=== PATIENT | male | born 1940 | race Caucasian/White ===

== ENCOUNTER → 2024-04-10 13:02 | Outpatient (REF) | payer MEDICARE, SELFPAY | LOC: MRI 3T 13:02 | PROVIDERS: ATTENDING PHYSICIAN Radiology Radiation Oncology; FAMILY PHYSICIAN Family Medicine | DX: C31.3 Malignant neoplasm of sphenoid sinus (principal) | CPT/HCPCS: 70553; A9575 ==

== ENCOUNTER 2024-10-02 19:13 | Inpatient (IN) | payer MEDICARE, SELFPAY ==
[2024-10-02] VITALS (15 sets, daily range): BP systolic 130–182; BP diastolic 73–134; BMI 27.9; BMI 27.8
--- NOTE | 2024-10-02 16:23 | ED.GENMED ---
History of Present Illness
General
Chief Complaint: Chest Pain
Source: patient
Exam Limitations: none
Time Seen by Provider: 10/02/24 16:19
Nursing documentation reviewed up to this point in time: agreed with
History of Present Illness
History of Present Illness:
84-year-old male presents emergency department due to chest pain for the past 2 days. Pain is in the center of his chest and radiates to his jaw for the past 2 days. Denies any shortness of breath. Currently he denies any chest pain. He was seen
at his primary care office, and sent to the emergency department.
Past History
Past History
ED Past Medical History: HTN
ED Past Surgical History: Other (Sinus tumor removal)
Social History
Tobacco: Non-smoker
Alcohol: None
Drug: None
Living: with family
Review of Systems
Review of Systems
Allergies reviewed?: Yes
All Other Systems: Not applicable
Constitutional: Reports no symptoms
EENT: Reports no symptoms
Respiratory: Reports no symptoms
Cardiac: Reports chest pain
ABD/GI: Reports no symptoms
: Reports no symptoms
Musculoskeletal: Reports no symptoms
Skin: Reports no symptoms
Neurological: Reports no symptoms
Endocrine: Reports no symptoms
Hematologic/Lymphatic: Reports no symptoms
Psychiatric: Reports no symptoms
Phy Exam
Physical Exam
Physical Exam:
Physical Exam
General: no apparent distress, not acutely ill
Neck: supple. no meningeal signs. normal posterior pharynx
Heart: s1/s2 regular rate and rhythm, no murmur. equal radial
pulses.
HEENT: Pupils equal round reactive to light, EOMI
Lungs: no acute respiratory distress. clear bilaterally
Abdomen: normal bowel sounds. not tender. no CVAT
Neuro: alert and oriented. no focal neurological deficits cranial nerves II through XII intact
Skin: no rash
Psychiatric: well kept. interactive and cooperative
Extremities: no edema. no calf tenderness. negative homans. good distal pulses
Scores
Heart Score for Chest Pain Patients
STEMI patient?: No
History: Moderately Suspicious
ECG: Significant ST-Depression
Age: >/= 65 years
Risk Factors: >/= 3 Risk Factors or History of CAD
Troponin: >/= 3 x Normal Limit
Heart Score for Chest Pain Patients: 9
Heart Score Risk: 72.7 % MACE over next 6 weeks
Course
Orders/Labs/Results
Orders:
Orders
10/02/24 16:01
Electrocardiogram (*1) Urgent
Reason for Study: Chest Pain
EKG- Treatment ONCE
10/02/24 16:19
IV Insert/Care/Rem.- Treatment PRN
Pulse Ox/cont/shift [RESP] Stat
Quantity: 1
10/02/24 16:20
Cardiac Monitoring- Treatment ONCE
10/02/24 16:22
Aspirin Chewable [Low Strength Aspirin] 324 mg PO NOW STA
10/02/24 16:25
Complete Blood Count/With Diff Urgent
Comprehensive Metabolic Panel Urgent
Glycohemoglobin (HgbA1c) Urgent
Magnesium Urgent
PTT Urgent
Prothrombin Time Urgent
Troponin I Urgent
10/02/24 17:01
Heparin 4,000 units IV NOW STA
Nursing to Place Non Medication Order As Directed
Physician Order: PTT 6 hours after initial start of Heparin infusion
Above order entered?: Yes
10/02/24 17:15
Heparin 61693 Units/250 ml 25,000 units in 250 ml IV PER PROTOCOL
Weight to be used for heparin protocol in kilograms (kg):: 101.3
Protocol:: Cardiac Tx/Acute Coronary
PTT Goal Range to be used:: PTT 73 to 111 seconds
Order type:: Initial
INITIAL Infusion Dose (UNITS/KG/hr) & then follow protocol:: 12 units/kg/hr
Infusion Dose in UNITS/hr & then follow protocol (UNITS/hr):: 1,000
INFUSION RATE in mL/hr & then follow protocol (mL/hr):: 10
PTT less than or equal to 64 seconds:: Increase rate by 200 units/hr (+ 2 mL/hr)
PTT 64.1 to 72.9 seconds:: Increase rate by 100 units/hr (+ 1 mL/hr)
PTT 73 to 111 seconds:: Target Range. No change in rate.
PTT 111.1 to 130.9 seconds:: Decrease rate by 100 units/hr (- 1 mL/hr)
PTT 131 to 199.9 seconds:: HOLD for 1 hr. Then decrease rate by 200 units/hr (- 2 mL/hr)
PTT greater than or equal to 200 seconds:: HOLD for 2 hrs & Notify Provider. Then decrease by 200 units/hr (-
2 mL/hr)
Lab follow-up:: Each change, PTT q6h until 2 consecutive are therapeutic. Then PTT
daily.
10/02/24 17:27
Add On- LAB Routine
Tests Added?: Hgba1c
EKG [Electrocardiogram (*1)] Stat
Reason for Study: Chest Pain
10/02/24 17:29
Nitroglycerin Sublingual [Nitrostat (Sublingual)] 0.4 mg SL NOW STA
Nitroglycerin Sublingual [Nitrostat (Sublingual)] 0.4 mg SL [id number] PRN
10/02/24 17:33
PTT Urgent
10/02/24 17:45
Heparin 5,000 units .ROUTE .STK-MED ONE
10/02/24 18:00
Nitroglycerin 100 mg/250 ml [Nitroglycerin Premix] 100 mg in 250 ml IV PER PROTOCOL
Initial dose in mcg/min, then titrate:: 5
Titrate to keep:: Other
Titrate to keep other:: SBP < 140mmHg
Titrate by mcg/min:: 5 mcg/min, may increase by 10 mcg/min if dose > 20 mcg/min
Frequency of titrations (minutes):: every 3-5 minutes
Maximum dose in mcg/min:: 200
Begin to taper infusion when:: Remained at goal for 2hrs
Taper by mcg/min:: 5 mcg/min
Frequency of taper (minutes) if patient maintains goal:: 30
Taper to off?: Yes
If infusion off & no longer maintaining goal:: Contact Provider
10/02/24 18:16
Admit/Transfer Patient As Directed
Co-Sign Provider:
Level of Care: Inpatient admission
Assign to:: IVU
Physician / Group: gregory
Diagnosis: NSTEMI
Reason for Hospitalization: NSTEMI
Expected length of stay greater than two midnights?: Yes
ELOS- Estimated Length of Stay in days: 3
I certify the patient meets the requirements for IP care: Yes
10/02/24 18:18
Code Status As Directed
Resuscitation Status: Full Code
10/03/24 00:05
PTT Urgent
Abnormal Lab Results
10/02/24
16:25
RBC 4.16 L 10^6/uL
(4.70-6.10)
Hct 38.3 L %
(39.0-52.0)
MCH 31.3 H pg
(27.0-31.0)
Absolute Lymphs (auto) 1.1 L 10^3/uL
(1.2-3.4)
Monocytes % 11.1 H %
(1.7-9.3)
BUN 25 H mg/dl
(9-20)
Glucose 101 H mg/dl
(70-99)
Troponin I 1.330 H* ng/ml
10/02/24 16:25
10/02/24 16:25
Vital Signs
Initial and Last Documented VS:
Initial Vital Signs
Temp Pulse Resp BP Pulse Ox
98.4 F 70 18 182/95 98
10/02/24 16:11 10/02/24 16:11 10/02/24 16:11 10/02/24 16:11 10/02/24 16:11
Last Documented Vital Signs
Temp Pulse Resp BP Pulse Ox
98.4 F 87 19 166/73 97
10/02/24 16:11 10/02/24 18:45 10/02/24 19:00 10/02/24 19:00 10/02/24 19:00
MDM/Problems Addressed
Differential Diagnosis Includes:
ACS, PE
MDM/Problems Addressed:
84-year-old male with NSTEMI. Heparin initiated, aspirin given. Initially discussed with Dr. Wills, who does not suspect STEMI at this time. Admit to hospitalist. Francesco text also sent to Dr. Colbert.
Chronic conditions affecting care: HTN and CAD
Acute Exacerbation and/or Progression of Chronic Illness: HTN and CAD
*Pulse Oximetry
Patient hypoxic: no
*EKG
Interpreted by ED Provider?: Yes
EKG Intrepretation Date: 10/02/24
EKG Intrepretation Time: 16:07
Interpretation: abnormal
Comparison EKG: no comparison EKG present
Heart Rate: 81
Rate: normal
Rhythm: sinus
[place]: normal axis
Interval: normal interval
QRS Pattern: normal QRS
Ischemia: ST depression
*Logistics Team Leader Interpretation
Rate: normal
Interpretation: normal
Heart Rate: 72
Rhythm: sinus
*Critical Care Note
Total Time (30-74mins, 75-104mins- exclusive of procedures): 32
comment:
Critical care statement: A total of 32 minutes of critical care time was provided for this patient. This includes management of unstable vital signs, evaluation of the patient at bedside, reviewing the patient's pertinent medical records, discussion
with consultants, review of old EKGs and review of pertinent medical records. This time with separate from time utilized to perform the aforementioned documented procedures
Data Reviewed
Review of Other/Old Records Reveals: Testing (Echocardiogram 09/07/2022 shows EF 55 to 60% with normal regional wall motion)
Source: records
Patient Management
Social determinants of health affecting care: Living situation and Strong social support
Discussion with other providers: Hospitalist and [employer] (Cardiology, Dr. Colbert and Dr. Henson)
Escalation/DeEscalation of care consider admission/obs:
Admit indicated
ED Attending Note
-
Portions of this chart may have been created with voice recognition software.� Occasional wrong word or��sound alike� substitutions may have occurred due to the inherent limitations of voice recognition software.
Discharge Plan
Departure
Patient Disposition: Admit
Date of Disposition: 10/02/24
Time of Disposition: 17:11
Admit to: IVU
Presentation/result/management discussed w/ accepting MD/DO: Hospitalist
Patient with high blood pressure during this ER visit?: Yes
Condition: Good
Discharge Problem:
Non-ST elevation AK (NSTEMI)
Interventions
Interventions:
*Risk Screen - Suicide Last Done: 10/02/24 16:11
*General Assessment Last Done: 10/02/24 16:11
*Neglect/Abuse Screening Last Done: 10/02/24 16:11
*ED- Fall Risk Assessment Last Done: 10/02/24 16:11
*ED COVID-19 Vaccine History Last Done: 10/02/24 16:20
ED- Cardiac Assessment Last Done: 10/02/24 16:20
[2024-10-02] MEDS: LOW STRENGTH ASPIRIN 324 MG PO (16:31)
[2024-10-02 16:33] LABS: % Basophils 0.4 % (0-2); % Eosinophils 1.4 % (0-6); % Immature Granulocytes 0.2 % (0-0.5); % Lymphocytes 21.1 % (20.5-51.1); % Monocytes 11.1 % (1.7-9.3); % Neutrophils 65.8 % (42.2-75.2); Absolute Eosinophils 0.1 10^3/uL (0-0.7); Absolute Lymphocytes 1.1 10^3/uL (1.2-3.4); Absolute Monocytes 0.6 10^3/uL (0.1-0.6); Absolute Neutrophils 3.4 10^3/uL (1.4-6.5); Hematocrit 38.3 % (39.0-52.0); Mean Corp Hgb Conc. 33.9 g/dL (33.0-37.0); Mean Corpuscular Hgb 31.3 pg (27.0-31.0); Mean Corpuscular Volume 92.1 fL (80.0-94.0); Mean Platelet Volume 9.6 fL (7.4-10.4); Nucleated Red Blood Cells % 0 % (-); Platelet Count 156 10^3/uL (130-400); Red Blood Cell Count 4.16 10^6/uL (4.70-6.10); Red Cell Dist. Width 13.2 % (11.5-14.5); White Blood Cell Count 5.1 10^3/uL (4.8-10.8)
[2024-10-02 16:42] LABS: INR 0.99; PT 13.4 Sec (11.4-14.6)
[2024-10-02 16:43] LABS: APTT 25.2 Sec (23.4-35.0)
[2024-10-02 16:51] LABS: ALT (SGPT) 15 U/L (0-50); AST (SGOT) 32 U/L (17-59); Albumin 4.2 g/dl (3.5-5.0); Alkaline Phosphatase 59 U/L (38-126); Blood Urea Nitrogen 25 mg/dl (9-20); Calcium 9.4 mg/dl (8.4-10.2); Carbon Dioxide 30 mmol/L (22-30); Chloride 103 mmol/L (98-107); Estimated Creatinine Clearance 67 ml/min; Glucose 101 mg/dl (70-99); Magnesium 1.9 mg/dl (1.6-2.3); Potassium 3.9 mmol/L (3.5-5.1); Sodium 142 mmol/L (135-145); Total Protein 7.1 g/dl (6.3-8.2); eGFR > 60.00
--- NOTE | 2024-10-02 17:47 | CON.CAR ---
Addendum entered and electronically signed by Rob Colbert MD 10/02/24 18:16:
84 yo male with PMH of CAD, prior PCI 1998 to RCA, resistant HTN presents to ED with a 1-2 days of intermittent chest, arm, jaw pain. He is currently pain free. Exam with irregular rhythm, no murmurs, 1+ LE edema. TnI 1.3. EKG with A fib and
anterior ST depression.
ACS/NSTEMI. Threat to life. ASA 324mg. Heparin drip (with monitoring of Hgb). Nitro drip. Beta hussain. Cath and echo this admission.
A fib, new onset. Continue metoprolol. Continue heparin drip. CHADS2-VASC = 4.
Original Note:
Consultation
Consultation Request
Date/Time Consultation Requested: 10/02/2024 17:15
Date/Time Consultation Performed: 10/02/2024 17:20
Requesting Provider: Dr. Dorantes
Performing Provider: JOSIANE Garcia for Dr. Colbert
Reason for Consultation: Chest pain
Medical History
-
Chief Complaint: Chest pain, jaw pain
History of Present Illness:
Jose Vogel is an 84 year old male (known to Dr. Henson, his primary coach builder), with CAD (PCI to pRCA, 1998), multidrug resistant HTN, & HLD, who presented with chest pain. He believes his chest pain started a day prior to yesterday. It
would come and go. Sometimes at rest sometimes with exertion. He describes it as a midsternal anterior chest pressure. He endorses associated bilateral lower jaw pain. He denies shortness of breath, dizziness, and palpitations. On exam, he has
lower extremity edema. He thinks it may be worse than his baseline lower extremity edema. Troponin in the ER abnormal. Currently chest pain-free.
Past Medical History
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
Past Surgical History: Other (ENT)
Social History
Tobacco: Non-Smoker
Alcohol: None
Drug: None
Personal:
Employment: Retired
Family History
Family History: Reviewed & Not Pertinent
Allergies / Home Medications
Allergy/AdvReac Type Severity Reaction Status Date / Time
No Known Allergies Allergy Unverified 10/02/24 17:32
�Medication �Instructions �Recorded �Confirmed �Type
aspirin 81 mg tablet,delayed 81 mg PO DAILY 10/02/24 10/02/24 History
release
calcium 600 mg (as 1 tab PO DAILY 10/02/24 10/02/24 History
carbonate)-vitamin D3 10 mcg (400
unit) tablet (Calcium 600 + D(3))
hydralazine 25 mg tablet 25 mg PO BID 10/02/24 10/02/24 History
losartan 100 mg tablet 100 mg PO DAILY 10/02/24 10/02/24 History
metoprolol tartrate 50 mg tablet 25 mg PO BID 10/02/24 10/02/24 History
(Lopressor)
nifedipine 60 mg tablet,extended 60 mg PO DAILY 10/02/24 10/02/24 History
release 24 hr
potassium chloride 10 mEq 10 meq PO Q48H 10/02/24 10/02/24 History
tablet,extended release
rosuvastatin 20 mg tablet (Crestor) 20 mg PO DAILY 10/02/24 10/02/24 History
sennosides 8.6 mg tablet (senna) 8.6 mg PO HSPRN PRN constipation 10/02/24 10/02/24 History
triamterene 37.5 1 tab PO DAILY 10/02/24 10/02/24 History
mg-hydrochlorothiazide 25 mg tablet
Review of Systems
-
History Source: Patient
All other systems: Negative unless noted
Constitutional: No Symptoms
EENT: No Symptoms
Respiratory: No Symptoms
Cardiac: Chest Pain
Abdomen/GI: No Symptoms
: No Symptoms
Musculoskeletal: No Symptoms
Skin: No Symptoms
Neurological: No Symptoms
Endocrine: No Symptoms
Hematologic/Lymphatic: No Symptoms
Physical Exam
Vital Signs
Temp Pulse Resp BP Pulse Ox
98.4 F 90 14 156/103 100
10/02/24 16:11 10/02/24 17:15 10/02/24 16:30 10/02/24 17:15 10/02/24 16:30
Lab Results
10/02/24 16:25
10/02/24 16:25
Troponin I 1.330 ng/ml H* 10/02/24 16:25
Physical Exam
General: Well Developed, Well Nourished, No Apparent Distress and Comfortable
HEENT: Normocephalic, Anicteric and Moist Mucous Membranes
Respiratory: Clear and Non Labored Respirations
Cardiac: S1/S2 and Regular Rhythm
Breast: Deferred by me
GI: Soft, Non Tender, Non Distended and Normal Bowel Sounds
Rectal: Deferred by Provider
Genito-urinary: No Costovertebral Tender
Musculoskeletal: No Clubbing, No Cyanosis and Edema (B/L LE)
Skin: Warm and Dry
Neuro: AO x 3
Hematologic/Lymphatic: No Lymphadenopathy
Psych: Calm
Impression / Plan
-
I/P: 84M with CAD (PCI to pRCA, 1998), multidrug resistant HTN, & HLD, who presented with chest pain
Primary Bucket Chucker: Dr. Henson
NSTEMI
- Currently chest pain-free
- Trend troponin to peak
- Received ASA 324 mg total
- Heparin bolus with drip to follow
- Nitro drip for goal SBP <140 mmHg
- Echocardiogram on Saturday
Atrial fibrillation, type unknown, unknown duration
- Currently rate controlled on metoprolol, continue
- Oral anticoagulation: Heparin drip, likely eventual transition to apixaban 5 mg twice daily
- [id number] score at least 4 (age 84, vascular disease, hypertension)
Lower extremity edema
- He reports chronic lower extremity edema but this is slightly worse
- Hold diuretic for now as he has no PND nor orthopnea
- May need to stop HCTZ and start furosemide
HTN, multidrug resistant
- Continue home medical therapy and follow for goal SBP <140 mmHg
HLD
- LDL above goal (88), was transitioned to rosuvastatin earlier this month
- Goal LDL < 70, ideally < 55
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
Data Reviewed
-
EKG: Report Reviewed by me
Medical Tests (Nuc Med, Echo etc): Report Reviewed by me
Labs: Labs Reviewed by me
Old Records: Reviewed
[2024-10-02] MEDS: HEPARIN 4000 UNITS IV (17:48)
[2024-10-02] MEDS: NITROSTAT (SUBLINGUAL) 0.4 MG SL (17:56)
[2024-10-02] MEDS: HEPARIN 25000 UNITS/250 ML IV (18:05)
--- NOTE | 2024-10-02 18:10 | HPS.HSE ---
Family Physician
-
Family Physician:
Chief Complaint
-
Chest pain for 2 days
History of Present Illness
HPI
84M HX HTN seen at ER
- pw chest pain for the past 2 days.
- He was seen at his primary care office, and sent to the emergency department.
- Pain is in the center of his chest and radiates to his jaw for the past 2 days.
- Currently he denies any CP
Medical History
Past Medical History
Past Medical History: Reports HTN
Past Surgical History: Reports Other
Social History
Tobacco: Non-smoker
Alcohol: None
Family History
Family History: Not pertinent
Allergies / Home Medications
Allergies reflects when Allergies were last updated in [employer].
Home Medications with original date entered in [employer]
Allergy/Medication List:
Allergies
Allergy/AdvReac Type Severity Reaction Status Date / Time
No Known Allergies Allergy Unverified 10/02/24 17:32
Home Medications
aspirin 81 mg tablet,delayed release 81 mg PO DAILY 10/02/24
calcium 600 mg (as carbonate)-vitamin D3 10 mcg (400 unit) tablet (Calcium 600 + D(3)) 1 tab PO DAILY 10/02/24
hydralazine 25 mg tablet 25 mg PO BID 10/02/24
losartan 100 mg tablet 100 mg PO DAILY 10/02/24
metoprolol tartrate 50 mg tablet (Lopressor) 25 mg PO BID 10/02/24
nifedipine 60 mg tablet,extended release 24 hr 60 mg PO DAILY 10/02/24
potassium chloride 10 mEq tablet,extended release 10 meq PO Q48H 10/02/24
rosuvastatin 20 mg tablet (Crestor) 20 mg PO DAILY 10/02/24
sennosides 8.6 mg tablet (senna) 8.6 mg PO HSPRN PRN constipation 10/02/24
triamterene 37.5 mg-hydrochlorothiazide 25 mg tablet 1 tab PO DAILY 10/02/24
Review of Systems
-
Constitutional: Reports No Symptoms
EENT: Reports No Symptoms
Respiratory: Reports No Symptoms
Cardiac: Reports See HPI and Chest Pain
Abdomen/GI: Reports No Symptoms
: Reports No Symptoms
Musculoskeletal: Reports No Symptoms
Skin: Reports No Symptoms
Neurological: Reports No Symptoms
Endocrine: Reports No Symptoms
Hematologic/Lymphatic: Reports No Symptoms
Psych: Reports No Symptoms
Physical Exam
Vital Signs
Vital Signs
Temp Pulse Resp BP Pulse Ox
98.4 F 90 14 157/96 100
10/02/24 16:11 10/02/24 17:15 10/02/24 16:30 10/02/24 17:56 10/02/24 16:30
Physical Exam
General: Well Developed, Well Nourished and No Apparent Distress
HEENT: NormoCephalic, Moist mucous membranes and Atraumatic
Respiratory: Clear
Cardiac: S1/S2 and Regular Rhythm; No Murmur or Rub
GI: Soft, Non Tender, Non Distended and Normal Bowel Sounds; No Organomegaly
Rectal: Deferred by Provider
Musculoskeletal: No Clubbing, No Cyanosis, Edema, Left Upper Extremity and Edema, Right Upper Extremity
Skin: No Rash
Neuro: Nonfocal/grossly intact
Laboratory Results
-
10/02/24 16:25
10/02/24 16:25
Laboratory Results
PT 13.4 Sec (11.4-14.6) 10/02/24 16:25
INR 0.99 10/02/24 16:25
APTT Cancelled 10/02/24 17:19
Total Bilirubin 1.0 mg/dl (0.2-1.3) 10/02/24 16:25
AST 32 U/L (17-59) 05/09/25 16:25
ALT 15 U/L (0-50) 10/02/24 16:25
Alkaline Phosphatase 59 U/L (38-126) 10/02/24 16:25
Troponin I 1.330 ng/ml H* 10/02/24 16:25
Data Reviewed
-
Medical Tests (Nuc Med, Echo, EKG etc): Report Reviewed by me
Lab Data: Labs Reviewed by me
Old Records: Reviewed
Impression/Plan
-
Abnormal Lab Results
10/02/24
16:25
RBC 4.16 L
Hct 38.3 L
MCH 31.3 H
Absolute Lymphs (auto) 1.1 L
Monocytes % 11.1 H
BUN 25 H
Glucose 101 H
Troponin I 1.330 H*
Data
unremarkable CBC
Nl Cr. nl eGFR
Pending A1C
EKG
ATRIAL FIBRILLATION WITH PREMATURE VENTRICULAR OR ABERRANTLY CONDUCTED COMPLEXES
LEFT ANTERIOR FASCICULAR BLOCK
MARKED ST ABNORMALITY, POSSIBLE ANTERIOR SUBENDOCARDIAL INJURY
ABNORMAL ECG
WHEN COMPARED WITH ECG OF 14-NOV-1999 10:04,
ATRIAL FIBRILLATION HAS REPLACED SINUS RHYTHM
ST NOW DEPRESSED IN ANTERIOR LEADS
T WAVE INVERSION NOW EVIDENT IN ANTERIOR LEADS
Confirmed by DINORA NAGEL MD ([id number]) on 10/02/2024 5:21:46 PM
09/07/22 TTE
Normal biventricular size and systolic function without regional wall motion abnormality.
Stage I diastolic dysfunction suggestive of abnormal relaxation.
Mild aortic regurgitation.
Compared to previous echo 02/24/2019, there is now diastolic dysfunction.
NO PRIOR hospitalist admission:
ASSESSMENT & PLAN
NSTEMI
Currently CP free
- POS TPNI 1.33
- Abn EKG for marked ST abnormality
- HX CAD, PAD
- c/w ASA
- agree with Heparin gtt
- SL NTG PRN
- NPO after MN in case cardiac cath
- c/w TELEVISION WRITER Metoprolol tartrate
- OSH s primary bolt man: Dr Henson
- CBC card consulted
A Fib with PVCs
HX of arrhythmias but type unknown
- AC: Initiated heparin gtt by CBC card
- c/w Metoprolol tartare for rate control
B/L lower ext edema - subacute vs chr per HX
- check proBNP
- ECHO in AM
Prior 09/07/22 TTE:
- Normal biventricular size and systolic function without regional wall motion abnormality.
- Stage I diastolic dysfunction suggestive of abnormal relaxation.
Benign HTN
- c/w TELEVISION WRITER Losartan , Hydralazine, Nifedipine
DVT Px: Heparin gtt
Code: Full code
IVU
[2024-10-02 19:51] LABS: Urine Albumin 2+ (Neg - Trace); Urine Bilirubin Negative (Negative); Urine Character Clear (Clear); Urine Color Yellow; Urine Glucose Negative (Negative); Urine Ketone 2+ (Negative); Urine Leukocyte Negative (Negative); Urine Nitrite Negative (Negative); Urine Occult Blood 4+ (Negative); Urine Urobilinogen Negative (Neg - 1+)
[2024-10-02 20:03] LABS: Urine Squamous Cell None seen /LPF (Few)
[2024-10-02 20:04] LABS: Urine Red Blood Cell 60-70 /HPF (0-2)
[2024-10-02 20:06] LABS: Urine White Cell 0-2 /HPF (0-5)
[2024-10-02] MEDS: NITROGLYCERIN PREMIX 250 IV (20:32)
[2024-10-02] MEDS: LOPRESSOR 25 MG PO (22:12)
[2024-10-02] MEDS: APRESOLINE 25 MG PO (22:12)
--- NOTE | 2024-10-02 23:09 | PTCARENOTE ---
Received patient from ED. SR with PVCs and PACs on the monitor. Alert and oriented. No chest or jaw pain at this time. Heparin and Nitro running as per protocol, see JUL. Oriented pt to room, NPO at midnight. No complaints from pt at this time, call
helm within reach.
[2024-10-03] VITALS (31 sets, daily range): BP systolic 94–154; BP diastolic 55–104; BMI 27.7
[2024-10-03 00:35] LABS: APTT 40.6 Sec (23.4-35.0)
[2024-10-03 03:15] LABS: Hematocrit 35.2 % (39.0-52.0); Mean Corp Hgb Conc. 34.1 g/dL (33.0-37.0); Mean Corpuscular Hgb 31.7 pg (27.0-31.0); Mean Corpuscular Volume 93.1 fL (80.0-94.0); Mean Platelet Volume 9.7 fL (7.4-10.4); Platelet Count 144 10^3/uL (130-400); Red Blood Cell Count 3.78 10^6/uL (4.70-6.10); Red Cell Dist. Width 13.2 % (11.5-14.5); White Blood Cell Count 5.3 10^3/uL (4.8-10.8)
[2024-10-03 03:37] LABS: ALT (SGPT) 24 U/L (0-50); AST (SGOT) 159 U/L (17-59); Albumin 3.2 g/dl (3.5-5.0); Alkaline Phosphatase 45 U/L (38-126); Blood Urea Nitrogen 21 mg/dl (9-20); Calcium 9.2 mg/dl (8.4-10.2); Carbon Dioxide 31 mmol/L (22-30); Chloride 107 mmol/L (98-107); Estimated Creatinine Clearance 81 ml/min; Glucose 110 mg/dl (70-99); Potassium 3.5 mmol/L (3.5-5.1); Sodium 143 mmol/L (135-145); Total Bilirubin 1.2 mg/dl (0.2-1.3); Total Protein 5.8 g/dl (6.3-8.2); eGFR > 60.00
[2024-10-03 03:48] LABS: NT-proBNP 9140 pg/ml
[2024-10-03 06:42] LABS: APTT 69.2 Sec (23.4-35.0)
[2024-10-03 08:27] LABS: Glycohemoglobin (HgbA1c) 5.6 % (4.0-5.6)
--- NOTE | 2024-10-03 09:39 | W.PN.HOSP.TC ---
Today's Communication/Plan
-
ACS protocol
Assessment / Plan
Assessment / Plan
Physical exam:
General: Well Developed, Well Nourished and No Apparent Distress
HEENT: Normocephalic, Atraumatic and Moist Mucous Membranes
Respiratory: Clear to Auscultation; Negative Wheezes, Rales or Rhonchi
Cardiac: Regular Rhythm and S1/S2
GI: Soft, Nontender and Nondistended
Musculoskeletal: No Clubbing, No Cyanosis and No Edema
Neuro: Awake, Alert and Oriented
Psych: Calm
A/P:
Acute NSTEMI:
Continue heparin drip and ACS protocol
On aspirin and beta-blockers
On nitroglycerin drip
Plavix load
Troponin peaked at 51.5
Plan for echocardiogram
Plan for cardiac cath
Patient has very high risk of cardiac complications and increased risk morbidity/mortality
Cardiology consult appreciated
Paroxysmal atrial fibrillation, newly diagnosed:
Continue heparin drip
On oral beta-hussain
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
grip wrapper
Nonsustained V. tach:
grip wrapper
Keep electrolytes within decent levels K>4 and mag> 2
Resistant hypertension:
On multiple antihypertensives
Hyperlipidemia:
Continue statin
History of carcinoma sphenoidal sinus:
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
Chronic lower extremity edema:
Likely lymphedema related
Obtain echocardiogram
DVT prophylaxis:
On heparin drip
CODE STATUS:
Full code
Total Critical Care Time__35___ minutes. I was immediately available to the patient and staff. I personally examined, reviewed labs, diagnostic images/reports, interpretations, treatment plans, discussed patient care with other providers and
family or caregivers (if patient is unable to make decisions), entered orders as appropriate and documented the medical record.
Anticipated Discharge: > 48 hours
Subjective/Interval History
-
Date of Service: October 03, 2024
Patient denies any chest pain or shortness of breath currently. Afebrile
Objective Data
-
Labs:
Laboratory Results
10/03/24 10/03/24 10/03/24
00:11 03:01 06:22
WBC 5.3
Hgb 12.0 L
Hct 35.2 L
Plt Count 144
APTT 40.6 H 69.2 H
Sodium 143
Potassium 3.5
Chloride 107
Carbon Dioxide 31 H
BUN 21 H
Creatinine 0.8
Glucose 110 H
Calcium 9.2
Total Bilirubin 1.2
AST 159 H
ALT 24
Alkaline Phosphatase 45
10/03/24
13:20
WBC
Hgb
Hct
Plt Count
APTT Pending
Sodium
Potassium
Chloride
Carbon Dioxide
BUN
Creatinine
Glucose
Calcium
Total Bilirubin
AST
ALT
Alkaline Phosphatase
Vital Signs:
Vital Signs
Temp Pulse Resp BP Pulse Ox
98.3 F 61 18 140/94 98
10/03/24 07:06 10/03/24 07:06 10/03/24 07:06 10/03/24 05:00 10/03/24 07:06
I&O
10/02/24 10/03/24 10/04/24
06:59 06:59 06:59
Output Total 800 / 800
Balance -800 / -800
--- NOTE | 2024-10-03 09:39 | W.PN.CD ---
Today's Communication / Plan
-
continue ASA, heparin drip, nitro drip, metoprolol
discussed with interventional cards: plavix load
cath and echo this admission, likely Saturday
Impression / Plan
-
I/P: 84M with CAD (PCI to pRCA, 1998), multidrug resistant HTN, & HLD, who presented with chest pain
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
CAD/NSTEMI
-threat to life
- Currently chest pain-free
- Trend troponin to peak: currently at 51.5
- continue ASA, heparin drip, nitro drip, metoprolol
-high risk IV meds/infusions, requires monitoring of labs/tele
-discussed with interventional cards: plavix load
-cath and echo this admission, likely Saturday
Atrial fibrillation, new, paroxysmal
- Continue
- anticoagulation: Heparin drip, with eventual transition to apixaban 5 mg twice daily post cath
- [id number] score at least 4 (age 84, vascular disease, hypertension)
Lower extremity edema
- chronic, suspect lymphedema
HTN, multidrug resistant
- Continue home medical therapy and follow for goal SBP <130 mmHg
-also on nitro drip
HLD
- LDL above goal (88), was transitioned to rosuvastatin earlier this month
- Goal LDL < 55
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
Physical Exam
Vital Signs/Labs
Vital Signs
Temp Pulse Resp BP Pulse Ox
98.3 F 61 18 140/94 98
10/03/24 07:06 10/03/24 07:06 10/03/24 07:06 10/03/24 05:00 10/03/24 07:06
10/02/24 10/03/24 10/04/24
06:59 06:59 06:59
Actual Weight 97.7 kg
10/03/24 03:01
10/03/24 03:01
PT 13.4 Sec (11.4-14.6) 10/02/24 16:
INR 0.99 10/02/24 16:25
APTT 69.2 Sec (23.4-35.0) H 10/03/24 06:22
Magnesium 1.9 mg/dl (1.6-2.3) 10/02/24 16:25
10/03/24
03:01
Afj-U-Tadlssbxnmv Pept 9140
LAB Results
10/02/24 10/02/24 10/03/24
21:36 00:11
Troponin I 1.330 H* 15.400 H* D 27.900 H* D
10/03/24 10/03/24
03:01 06:22
Troponin I 37.500 H* D 51.500 H* D
Physical Exam
Constitutional: No acute distress and Comfortable
EENT: Moist mucous membranes
Cardiovascular: Rhythm & rate is regular, Systolic murmur absent and Pedal edema present
Respiratory: Respiratory effort normal and Lungs clear to auscul.
Neuro/Psych: AO x 3
Data Reviewed
-
Date of Service: October 03, 2024
EKG: Other (Tele: SR, PAC's, PVC's, 7 beats NSVT)
Labs: Labs Reviewed by me
[2024-10-03] MEDS: PLAVIX 600 MG PO (09:46)
[2024-10-03] MEDS: LOPRESSOR 25 MG PO ×2 (09:47→20:49)
[2024-10-03] MEDS: APRESOLINE 25 MG PO ×2 (09:47→20:49)
[2024-10-03] MEDS: ASPIR LOW (ENTERIC COATED) 81 MG PO (09:47)
[2024-10-03] MEDS: COZAAR 100 MG PO (09:47)
[2024-10-03] MEDS: PROCARDIA XL (EXTENDED RELEASE) 60 MG PO (09:47)
[2024-10-03 14:27] LABS: APTT 84.7 Sec (23.4-35.0)
[2024-10-03] MEDS: HEPARIN 25000 UNITS/250 ML IV (16:48)
--- NOTE | 2024-10-03 18:03 | PTCARENOTE ---
Pt with 14 beat run VT on monitor, asymptomatic. Dr. Colbert made aware, no new orders at this time.
--- NOTE | 2024-10-03 19:25 | PTCARENOTE ---
Lump noted on pts right wrist above IV site. IV site flushed without issue, pt denies pain or burning, +blood return noted.
--- NOTE | 2024-10-03 21:39 | PTCARENOTE ---
Patient received at change of shift resting in the bed. Offers no complaints at this time. Denies chest pain and/or jaw pain. Sinus rhythm with PACs and PVCs on telemetry. Heparin gtt infusing at 1300units/hr. Nitroglycerin gtt initially at
5mcg/min, tapered off per order as systolic BP has been <140mmHg for two hours. Oxygen saturation on room air 97-99%. Patient noted to be intermittently forgetful, bed alarm armed. Call helm within reach. Bed in lowest position and wheels locked.
Spouse at bedside. Discussed plan of care with patient and spouse. Care ongoing.
[2024-10-04] VITALS (21 sets, daily range): BP systolic 83–152; BP diastolic 48–99; BMI 27.7
[2024-10-04 02:51] LABS: Hematocrit 33.6 % (39.0-52.0); Hemoglobin 11.4 g/dL (13.0-18.0); Mean Corp Hgb Conc. 33.9 g/dL (33.0-37.0); Mean Corpuscular Hgb 31.5 pg (27.0-31.0); Mean Corpuscular Volume 92.8 fL (80.0-94.0); Platelet Count 147 10^3/uL (130-400); Red Blood Cell Count 3.62 10^6/uL (4.70-6.10); Red Cell Dist. Width 13.3 % (11.5-14.5); White Blood Cell Count 4.7 10^3/uL (4.8-10.8)
[2024-10-04 03:02] LABS: APTT 85.8 Sec (23.4-35.0)
[2024-10-04 03:11] LABS: Blood Urea Nitrogen 24 mg/dl (9-20); Carbon Dioxide 33 mmol/L (22-30); Chloride 106 mmol/L (98-107); Estimated Creatinine Clearance 72 ml/min; Glucose 97 mg/dl (70-99); Magnesium 1.9 mg/dl (1.6-2.3); Potassium 3.5 mmol/L (3.5-5.1); Sodium 140 mmol/L (135-145); eGFR > 60.00
[2024-10-04] MEDS: ASPIR LOW (ENTERIC COATED) 81 MG PO (08:26)
[2024-10-04] MEDS: APRESOLINE 25 MG PO (08:26)
[2024-10-04] MEDS: PLAVIX 75 MG PO (08:26)
[2024-10-04] MEDS: PROCARDIA XL (EXTENDED RELEASE) 60 MG PO (08:26)
[2024-10-04] MEDS: LOPRESSOR 25 MG PO ×2 (08:26→19:25)
[2024-10-04] MEDS: COZAAR 100 MG PO (08:26)
--- NOTE | 2024-10-04 09:35 | W.PN.CD ---
Today's Communication / Plan
-
continue ASA, plavix, heparin drip, nitro drip, metoprolol
cath and echo tomorrow
Impression / Plan
-
I/P: 84M with CAD (PCI to pRCA, 1998), multidrug resistant HTN, & HLD, who presented with chest pain
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
CAD/NSTEMI
-threat to life
- Currently chest pain-free
- Trend troponin to peak: currently at 51.5
- continue ASA, heparin drip, nitro drip, metoprolol
-high risk IV meds/infusions, requires monitoring of labs/tele
-discussed with interventional cards: plavix load
-cath and echo tomorrow
Atrial fibrillation, new, paroxysmal
- Continue
- anticoagulation: Heparin drip, with eventual transition to apixaban 5 mg twice daily post cath
- [id number] score at least 4 (age 84, vascular disease, hypertension)
Lower extremity edema
- chronic, suspect lymphedema
HTN, multidrug resistant
- Continue home medical therapy and follow for goal SBP <130 mmHg
-also on nitro drip
HLD
- LDL above goal (88), was transitioned to rosuvastatin earlier this month
- Goal LDL < 55
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
Physical Exam
Vital Signs/Labs
Vital Signs
Temp Pulse Resp BP Pulse Ox
97.5 F 50 20 139/73 97
10/04/24 07:19 10/04/24 05:15 10/04/24 07:19 10/04/24 05:15 10/04/24 07:19
10/03/24 10/04/24 10/05/24
06:59 06:59 06:59
Actual Weight 97.7 kg 97.8 kg
10/04/24 02:27
10/04/24 02:27
PT 13.4 Sec (11.4-14.6) 10/02/24 16:25
INR 0.99 10/02/24 16:25
APTT 85.8 Sec (23.4-35.0) H 10/04/24 02:27
Magnesium 1.9 mg/dl (1.6-2.3) 10/04/24 02:27
10/03/24
03:01
Wns-Q-Ideibyawlir Pept 9140
LAB Results
10/02/24 10/02/24 10/03/24
: 21:36 00:11
Troponin I 1.330 H* 15.400 H* D 27.900 H* D
10/03/24 10/03/24 10/03/24
03:01 06:22 10:18
Troponin I 37.500 H* D 51.500 H* D 47.900 H*
Physical Exam
Constitutional: No acute distress and Comfortable
EENT: Moist mucous membranes
Cardiovascular: Rhythm & rate is regular, JVD pressure is normal, Pedal edema present and Systolic murmur present
Respiratory: Respiratory effort normal
Neuro/Psych: AO x 3
Data Reviewed
-
Date of Service: October 04, 2024
EKG: Other (Tele: SR, frequent V ectopy)
Labs: Labs Reviewed by me
--- NOTE | 2024-10-04 10:03 | W.PN.HOSP.TC ---
Today's Communication/Plan
-
Plan for cardiac cath in a.m.
Assessment / Plan
Assessment / Plan
Physical exam:
General: Well Developed, Well Nourished and No Apparent Distress
HEENT: Normocephalic, Atraumatic and Moist Mucous Membranes
Respiratory: Clear to Auscultation; Negative Wheezes, Rales or Rhonchi
Cardiac: Regular Rhythm and S1/S2
GI: Soft, Nontender and Nondistended
Musculoskeletal: No Clubbing, No Cyanosis and No Edema
Neuro: Awake, Alert and Oriented
Psych: Calm
A/P:
Acute NSTEMI:
Continue heparin drip and ACS protocol
On aspirin and beta-blockers
On nitroglycerin drip
Plavix load
Troponin peaked at 51.5
Plan for echocardiogram
Plan for cardiac cath
Patient has very high risk of cardiac complications and increased risk morbidity/mortality
Cardiology consult appreciated
Tried to reach but unsuccessful
Paroxysmal atrial fibrillation, newly diagnosed:
Continue heparin drip
On oral beta-hussain
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
Nonsustained V. tach:
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
Keep electrolytes within decent levels K>4 and mag> 2
Resistant hypertension:
On multiple antihypertensives
Hyperlipidemia:
Continue statin
History of carcinoma sphenoidal sinus:
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
Chronic lower extremity edema:
Likely lymphedema related
Obtain echocardiogram
DVT prophylaxis:
On heparin drip
CODE STATUS:
Full code
Total time spent on today's encounter was 52 minutes which included time spent in counseling the patient/family regarding diagnosis and treatment plan as listed above, goals of care, and symptom management. Case was discussed with nursing staff,
specialists, and care coordinators/case management. All labs and imaging personally reviewed by me. Remainder the time spent in detailed review of previous records, lab data, imaging, and other medical provider documentation.
Anticipated Discharge: 24 - 48 hours
Subjective/Interval History
-
Date of Service: October 04, 2024
Patient denies any chest pain or shortness of breath at rest.
Objective Data
-
Labs:
Laboratory Results
10/04/24
02:27
WBC 4.7 L
Hgb 11.4 L
Hct 33.6 L
Plt Count 147
APTT 85.8 H
Sodium 140
Potassium 3.5
Chloride 106
Carbon Dioxide 33 H
BUN 24 H
Creatinine 0.9
Glucose 97
Calcium 9.0
Vital Signs:
Vital Signs
Temp Pulse Resp BP Pulse Ox
97.5 F 49 20 133/73 97
10/04/24 07:19 10/04/24 09:30 10/04/24 07:19 10/04/24 07:19 10/04/24 07:19
I&O
10/03/24 10/04/24 10/05/24
06:59 06:59 06:59
Output Total 800 / 800
Balance -800 / -800
--- NOTE | 2024-10-04 11:00 | PTCARENOTE ---
Pt's BP 80-90/40-60, asymptomatic. Dr. Colbert made aware, to encourage PO fluids. NTG drip remains off at present.
[2024-10-04] MEDS: HEPARIN 25000 UNITS/250 ML IV (11:42)
[2024-10-05] VITALS (27 sets, daily range): BP systolic 103–164; BP diastolic 65–129; BMI 27.4
--- NOTE | 2024-10-05 00:35 | PTCARENOTE ---
Rec'd pt at change of shift. Pt AAO*3, VSS, and SR on monitor with PVC's and PAC's. Pt denies any pain or discomfort. Heparin infusing as ordered. Pt NPO after midnight for possible heart cath in AM. Pt updated on plan of care, resting with bed
alarm active, and call helm with in reach. See MAR and flowchart for full pt care and assessment.
[2024-10-05 04:58] LABS: Hematocrit 36.3 % (39.0-52.0); Hemoglobin 12.2 g/dL (13.0-18.0); Mean Corp Hgb Conc. 33.6 g/dL (33.0-37.0); Mean Corpuscular Hgb 31.3 pg (27.0-31.0); Mean Corpuscular Volume 93.1 fL (80.0-94.0); Mean Platelet Volume 10.2 fL (7.4-10.4); Platelet Count 144 10^3/uL (130-400); Red Cell Dist. Width 13.4 % (11.5-14.5); White Blood Cell Count 4.6 10^3/uL (4.8-10.8)
[2024-10-05 05:19] LABS: APTT 71.9 Sec (23.4-35.0)
--- NOTE | 2024-10-05 05:49 | PTCARENOTE ---
Pt woken up for 3AM vitals. Disoriented to place at this time. Pt easily redirected. standing at bedside at this time. Pt able to state home address, , name, and time.
15 minutes after pt care, pts was found attempting to enter another pt's room. states she was looking for a place to get washed up and 'return to my husbands room.' Pt's redirected to room and reoriented to setting. Pt verbalizes
understanding.
Approximately 5 minutes later spouse presented at nurses station asking why pt was not at procedure. Pt resting will call helm in reach and denies having any pain or discomfort. Spouse educated on NPO status on upcoming procedure. Pt resting with
call helm in reach and plan of care ongoing.
[2024-10-05 06:01] LABS: Blood Urea Nitrogen 23 mg/dl (9-20); Calcium 9.4 mg/dl (8.4-10.2); Carbon Dioxide 29 mmol/L (22-30); Chloride 108 mmol/L (98-107); Estimated Creatinine Clearance 65 ml/min; Glucose 108 mg/dl (70-99); Potassium 3.9 mmol/L (3.5-5.1); Sodium 141 mmol/L (135-145); eGFR > 60.00
[2024-10-05] MEDS: HEPARIN 25000 UNITS/250 ML IV ×2 (07:10→13:35)
--- NOTE | 2024-10-05 08:03 | PTCARENOTE ---
Patient received from lieutenant shift supervisor resting in bed, awake and alert, oriented to self, place, and purpose, reoriented to time. NSR w/frequent ectopy via cm, SaO2 @ 95% on RA. Heparin gtt infusing peripherally per protocol. Assisted oob to bathroom,
moderate void, am care performed. Patient and , at bedside, updated to plan of care for the day including possible cardiac catheterization today. See work list for full assessment and interventions performed.
[2024-10-05] MEDS: ASPIR LOW (ENTERIC COATED) 81 MG PO (08:38)
[2024-10-05] MEDS: PLAVIX 75 MG PO (08:39)
[2024-10-05] MEDS: LOPRESSOR 25 MG PO ×2 (08:39→19:46)
[2024-10-05] MEDS: COZAAR 100 MG PO (08:41)
--- NOTE | 2024-10-05 08:41 | W.PN.HOSP.TC ---
Today's Communication/Plan
-
Cardiac cath today
Assessment / Plan
Assessment / Plan
Impression:
84 years old male history of CAD, hypertension, presented with non-STEMI.� Also new onset of A-fib.� On IV heparin drip, nitroglycerin, ACS protocol.
Seen by cardiology recommended cardiac cath.
Assessment/plan:
Acute NSTEMI:
Continue heparin drip and ACS protocol
On aspirin and beta-blockers
On nitroglycerin drip
Plavix load
Troponin peaked at 51.5
Plan for echocardiogram
Plan for cardiac cath on Saturday
Patient has very high risk of cardiac complications and increased risk morbidity/mortality
Cardiology consult appreciated
10/05
Echocardiogram showed:
Mildly dilated LV with moderately reduced systolic function.
EF is 35-40% by visual estimation. Anterolateral and lateral wall motion
abnormalities.
Stage I diastolic dysfunction suggestive of abnormal relaxation.
Normal right ventricular size and function.
Mild aortic regurgitation.
Insufficient TR for estimation of PASP.
Compared to prior from September 07, 2022, LVEF is now moderately reduced,
previously normal, and there are new wall motion abnormalities described above.
Discussed with at bedside.
For cardiac cath today
Paroxysmal atrial fibrillation, newly diagnosed:
Continue heparin drip
On oral beta-hussain
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
Nonsustained V. tach:
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
Keep electrolytes within decent levels K>4 and mag> 2
Resistant hypertension:
On multiple antihypertensives
Hyperlipidemia:
Continue statin
History of carcinoma sphenoidal sinus:
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
Chronic lower extremity edema:
Likely lymphedema related
Obtain echocardiogram
CODE STATUS: Full code
DVT prophylaxis: Heparin drip
Diet: NPO
Total time spent on today's encounter was 65 minutes which included time spent in counseling the patient/family regarding diagnosis and treatment plan as listed above, goals of care, and symptom management. Case was discussed with nursing staff,
specialists, and care coordinators/case management. All labs and imaging personally reviewed by me. Remainder the time spent in detailed review of previous records, lab data, imaging, and other medical provider documentation.
Anticipated Discharge: Within 24 hours
Subjective/Interval History
-
Date of Service: October 05, 2024
Patient seen and examined at bedside, discussed with at bedside.
Denies any chest pain or shortness of breath, no abdominal pain, no nausea, no vomiting, no diarrhea or constipation.
For cardiac cath today.
Objective Data
-
Labs:
Laboratory Results
10/05/24 10/05/24
04:45 12:00
WBC 4.6 L
Hgb 12.2 L
Hct 36.3 L
Plt Count 144
APTT 71.9 H Pending
Sodium 141
Potassium 3.9
Chloride 108 H
Carbon Dioxide 29
BUN 23 H
Creatinine 1.0
Glucose 108 H
Calcium 9.4
Vital Signs:
Vital Signs
Temp Pulse Resp BP Pulse Ox
97.5 F 70 18 145/84 95
10/05/24 07:33 10/05/24 08:41 10/05/24 07:33 10/05/24 08:41 10/05/24 07:52
I&O
10/04/24 10/05/24 10/06/24
06:59 06:59 06:59
Intake Total 240 / 240 /
Balance 240 / 240
Physical Exam
-
General: Well Developed, Well Nourished, No Apparent Distress and Comfortable
HEENT: Normocephalic, Atraumatic, Moist Mucous Membranes, No Ptosis, PERRLA and Nose Appears Normal
Respiratory: Clear to Auscultation and Non Labored Respirations
Cardiac: S1/S2 and Irregular Rhythm
Breast: Deferred by me
GI: Soft, Nontender, Nondistended and Normal Bowel Sounds
Genito-urinary: No Costovertebral Tender
Musculoskeletal: No Clubbing, No Cyanosis, Edema, Right Lower Extrem and Edema, Left Lower Extrem
Skin: Warm
Neuro: Awake, Alert, Oriented, AO x 3 and No Motor Deficits
Psych: Calm
Data Reviewed
-
Diagnostic Radiology: Image personally visualized and interpreted and Report Reviewed by me
CT Scan: Image personally visualized and interpreted and Report Reviewed by me
Ultrasound: Image personally visualized and interpreted and Report Reviewed by me
MRI: Image personally visualized and interpreted and Report Reviewed by me
Medical Tests (Nuc Med, Echo etc): Image personally visualized and interpreted and Report Reviewed by me
Labs: Labs Reviewed by me
Old Records: Reviewed
[2024-10-05] MEDS: PROCARDIA XL (EXTENDED RELEASE) 60 MG PO (09:49)
[2024-10-05 13:32] LABS: APTT 66.6 Sec (23.4-35.0)
--- NOTE | 2024-10-05 15:00 | PTCARENOTE ---
PT recieved from clinical lab assistant AAOx4 w/o complaints of pain. TR band present on R radial. no bleeding noted. vitals Q15 WNL
--- NOTE | 2024-10-05 15:15 | CM ---
spoke to pt in room, he is prev indep, lives with his in a 2 story home with 2 steps to enter. he has a cane and a walker to use if needed. his is here in the room, and is staying with him. plan is for dc to home when medically stable.
[2024-10-05 16:24] LABS: ACT-LR - POC 282 Seconds (116-155)
[2024-10-05] MEDS: NSS 1000 IV (17:00)
--- NOTE | 2024-10-05 18:15 | PTCARENOTE ---
Swelling of R hand present FIRE WARDEN aware and Dr Henson at bedside now hand wrap in progress, and forearm wrap w/ BP cuff and 20 mmHg above systolic pressure for 1 hour
--- NOTE | 2024-10-05 19:13 | ITS.CL.PN ---
[employer] Consultant - Procedure Note
Procedure
Procedure Note:
CARDIAC CATHETERIZATION REPORT
Date of Procedure: 10/05/2024
Referring: Dr. Pablo Colbert MD, PhD
Indication: NSTEMI
PROCEDURE(S)
1. left heart catheterization
2. coronary angiography
ACCESS: 6F right radial artery (closure: radial band)
CATHETERS
1. 6F JR4
2. 6F JL4 (JL5 may be best fit)
MODERATE SEDATION: 40 minutes of moderate sedation was utilized. An independent medical photographer was present to assist with and help manage the patient's level of consciousness and physiologic status.
HEMODYNAMIC DATA
LV 150/13 (EDP 20) mmHg
AO 154/73 (mean 100) mmHg
CORONARY ANGIOGRAPHY
Dominance: Right
LM: Large with minimal disease.
LAD: Large vessel giving rise to moderate caliber D1 and several small distal diagonal branches. There is diffuse moderate disease throughout the vessel. There is moderate ostial disease at the D1.
LCx: Moderate caliber vessel giving rise to a single high rising OM1. There is severe 90% stenosis in the proximal aspect of the OM1 that is hazy and appears the likely culprit for the patient's presentation.
RCA: Large vessel giving rise to a moderate caliber RPDA, small RPL1, large RPL2, and moderate caliber RPL3. There is a stent in the proximal vessel with mild ISR. There is diffuse moderate disease up to 70% focally in the mid vessel.
At the conclusion of the case, intubation of the left main with a XB 4.5 guide catheter was attempted from the radial artery unsuccessfully due to brachiocephalic and aortic tortuosity and calcification. It became clear that to successfully
revascularize the culprit OM, groin access would be necessary for both catheter manipulation and added support. The decision was made to stage the procedure with femoral access the following day.
RADIATION: dose 604 mGy; DAP 39 Gy*cm2; fluoroscopy time 13.5 min
CONCLUSIONS
1. Coronary artery disease as described with likely culprit stenosis of the large OM1.
2. Mildly elevated LV filling pressure and no aortic stenosis
RECOMMENDATIONS
1. Culprit lesion revascularization of the OM1 with 7 [place] femoral access. I believe this is the best solution to ensure that the patient does not have recurrent ME in this territory, and potentially help improve his now reduced left ventricular
systolic function. However, the patient has been chest pain-free now for 48 hours and is insistent upon leaving the hospital tomorrow if possible. Given recent data suggesting equivalent rates of cardiovascular (albeit slightly higher rates of
subsequent nonfatal ME) with a conservative strategy for older individuals with NSTEMI (SENIOR-MARELY trial, 2023), this is a reasonable approach. Will discuss tomorrow morning.
2. Given chest pain free for 48 hours with troponin peak 2 days ago, okay to discontinue heparin
3. No further nitro drip to ensure patient remains chest pain-free
4. Consider addition of long-acting nitrate prior to discharge
Copy to: Dr. Epifanio Henson MD, PhD (tool designer apprentice); Dr. Stevan Torres MD (PCP)
Signed: Epifanio Henson MD, PhD
--- NOTE | 2024-10-05 23:05 | PTCARENOTE ---
Rec'd pt at change of shift. Post PCI, R radial band intact with old drainage, site ecchymotic, elastic bandage removed at 2100 per order, and R lower arm BP cuff removed an hour after application as order. JAC Mika at bedside and inspected
swelling and mild tenderness at r radial site. Pt reported relief with pressure dressing and elastic bandage being removed. Post angiograph care continues see flowchart. Joss bandage intact loosely overnight as ordered.
No order to restart heparin post diagnostic procedure. Dr. Lugo notified via tiger text and phone call, heparin remains discontinued for risk of bleeding.
Pt AAO*3, forgetful, BP stable, and SR on TELE monitor. PT reminded of R upper extremity restrictions. at bedside. Plan of care ongoing, call helm within reach. See MAR and flowchart for full pt care and assessment.
[2024-10-06] VITALS (24 sets, daily range): BP systolic 91–176; BP diastolic 40–94; BMI 27.2
--- NOTE | 2024-10-06 00:45 | PTCARENOTE ---
Pt found to be wondering outside of room in a hospital issued gown. Visitor asked to return hospital property and later complied. RN assessing R radial site at this time, visitor asked nurse 'please leave the room, we are trying to sleep.'
RN advocated for PT safety reminding pt's spouse and pt of post cath assessment necessity.
[2024-10-06 04:13] LABS: Hematocrit 35.8 % (39.0-52.0); Hemoglobin 12.1 g/dL (13.0-18.0); Mean Corp Hgb Conc. 33.8 g/dL (33.0-37.0); Mean Corpuscular Hgb 31.5 pg (27.0-31.0); Mean Corpuscular Volume 93.2 fL (80.0-94.0); Mean Platelet Volume 10.4 fL (7.4-10.4); Platelet Count 152 10^3/uL (130-400); Red Blood Cell Count 3.84 10^6/uL (4.70-6.10); Red Cell Dist. Width 13.6 % (11.5-14.5); White Blood Cell Count 5.5 10^3/uL (4.8-10.8)
[2024-10-06 04:36] LABS: Blood Urea Nitrogen 25 mg/dl (9-20); Calcium 9.2 mg/dl (8.4-10.2); Carbon Dioxide 27 mmol/L (22-30); Chloride 110 mmol/L (98-107); Estimated Creatinine Clearance 59 ml/min; Glucose 105 mg/dl (70-99); Magnesium 1.8 mg/dl (1.6-2.3); Sodium 141 mmol/L (135-145); eGFR > 60.00
[2024-10-06] MEDS: PROCARDIA XL (EXTENDED RELEASE) 60 MG PO (09:03)
[2024-10-06] MEDS: PLAVIX 75 MG PO (09:03)
[2024-10-06] MEDS: COZAAR 100 MG PO (09:03)
[2024-10-06] MEDS: ASPIR LOW (ENTERIC COATED) 81 MG PO (09:03)
[2024-10-06] MEDS: LOPRESSOR 25 MG PO (09:03)
--- NOTE | 2024-10-06 11:19 | PTCARENOTE ---
Right arm +1 edema noted, +ecchymosis. +CMS to fingers, +radial pulse. Joss intact to right forearm for compression. Pt c/o slight tenderness in right arm, elevated on pillow.
--- NOTE | 2024-10-06 14:00 | W.PN.HOSP.TC ---
Today's Communication/Plan
-
Cardiac cath today
Assessment / Plan
Assessment / Plan
Impression:
84 years old male history of CAD, hypertension, presented with non-STEMI.� Also new onset of A-fib.� On IV heparin drip, nitroglycerin, ACS protocol.
Seen by cardiology recommended cardiac cath.
Assessment/plan:
Acute NSTEMI:
Continue heparin drip and ACS protocol
On aspirin and beta-blockers
On nitroglycerin drip
Plavix load
Troponin peaked at 51.5
Plan for echocardiogram
Plan for cardiac cath on Saturday
Patient has very high risk of cardiac complications and increased risk morbidity/mortality
Cardiology consult appreciated
10/05
Echocardiogram showed:
Mildly dilated LV with moderately reduced systolic function.
EF is 35-40% by visual estimation. Anterolateral and lateral wall motion
abnormalities.
Stage I diastolic dysfunction suggestive of abnormal relaxation.
Normal right ventricular size and function.
Mild aortic regurgitation.
Insufficient TR for estimation of PASP.
Compared to prior from September 07, 2022, LVEF is now moderately reduced,
previously normal, and there are new wall motion abnormalities described above.
Discussed with at bedside.
For cardiac cath today
10/06
Cardiac cath 10/05 showed:
1. Coronary artery disease as described with likely culprit stenosis of the large OM1.
2. Mildly elevated LV filling pressure and no aortic stenosis
Plan for medical therapy versus repeat cardiac cath with femoral access.
Initially patient elected medical therapy but after discussion with his PCP he changed his mind to repeat cardiac cath.
Patient will go today for repeat cardiac cath
Paroxysmal atrial fibrillation, newly diagnosed:
Currently off heparin drip
On oral beta-hussain
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
Nonsustained V. tach:
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
Keep electrolytes within decent levels K>4 and mag> 2
Resistant hypertension:
On multiple antihypertensives
Hyperlipidemia:
Continue statin
History of carcinoma sphenoidal sinus:
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
Chronic lower extremity edema:
Likely lymphedema related
Obtain echocardiogram
CODE STATUS: Full code
DVT prophylaxis: Heparin drip
Diet: NPO for cardiac catheter
Family communication: Discussed with at bedside
Total time spent on today's encounter was 65 minutes which included time spent in counseling the patient/family regarding diagnosis and treatment plan as listed above, goals of care, and symptom management. Case was discussed with nursing staff,
specialists, and care coordinators/case management. All labs and imaging personally reviewed by me. Remainder the time spent in detailed review of previous records, lab data, imaging, and other medical provider documentation.
Anticipated Discharge: Within 24 hours
Subjective/Interval History
-
Date of Service: October 06, 2024
Patient seen and examined at bedside, at bedside, denies any chest pain or shortness of breath, no abdominal pain, no nausea, no vomiting, no diarrhea or constipation.
For cardiac cath today via femoral access.
Objective Data
-
Labs:
Laboratory Results
10/06/24
03:23
WBC 5.5
Hgb 12.1 L
Hct 35.8 L
Plt Count 152
Sodium 141
Potassium 4.0
Chloride 110 H
Carbon Dioxide 27
BUN 25 H
Creatinine 1.1
Glucose 105 H
Calcium 9.2
Vital Signs:
Vital Signs
Temp Pulse Resp BP Pulse Ox
97.6 F 56 20 112/65 99
10/06/24 11:40 10/06/24 11:38 10/06/24 07:52 10/06/24 11:38 10/06/24 11:40
I&O
10/05/24 10/06/24 10/07/24
06:59 06:59 06:59
Intake Total 240 / 240 56 / 56
Output Total 900 / 900 300 / 300
Balance 240 / 240 -844 / -844 -300 / -300
Physical Exam
-
General: Well Developed, Well Nourished, No Apparent Distress and Comfortable
HEENT: Normocephalic, Atraumatic, Moist Mucous Membranes, No Ptosis, PERRLA and Nose Appears Normal
Respiratory: Clear to Auscultation and Non Labored Respirations
Cardiac: S1/S2 and Irregular Rhythm
Breast: Deferred by me
GI: Soft, Nontender, Nondistended and Normal Bowel Sounds
Genito-urinary: No Costovertebral Tender
Musculoskeletal: No Clubbing, No Cyanosis, Edema, Right Lower Extrem and Edema, Left Lower Extrem
Skin: Warm
Neuro: Awake, Alert, Oriented, AO x 3 and No Motor Deficits
Psych: Calm
Data Reviewed
-
Diagnostic Radiology: Image personally visualized and interpreted and Report Reviewed by me
CT Scan: Image personally visualized and interpreted and Report Reviewed by me
Ultrasound: Image personally visualized and interpreted and Report Reviewed by me
MRI: Image personally visualized and interpreted and Report Reviewed by me
Medical Tests (Nuc Med, Echo etc): Image personally visualized and interpreted and Report Reviewed by me
Labs: Labs Reviewed by me
Old Records: Reviewed
[2024-10-06 17:51] LABS: Hemoglobin 12.1 g/dL (13.0-18.0); Mean Corp Hgb Conc. 34.6 g/dL (33.0-37.0); Mean Corpuscular Volume 89.7 fL (80.0-94.0); Mean Platelet Volume 10.2 fL (7.4-10.4); Platelet Count 154 10^3/uL (130-400); Red Cell Dist. Width 13.4 % (11.5-14.5); White Blood Cell Count 5.3 10^3/uL (4.8-10.8)
[2024-10-06 18:01] LABS: INR 1.29; PT 16.4 Sec (11.4-14.6)
[2024-10-06 18:07] LABS: ALT (SGPT) 22 U/L (0-50); AST (SGOT) 41 U/L (17-59); Albumin 3.8 g/dl (3.5-5.0); Alkaline Phosphatase 58 U/L (38-126); Blood Urea Nitrogen 24 mg/dl (9-20); Calcium 9.5 mg/dl (8.4-10.2); Carbon Dioxide 22 mmol/L (22-30); Chloride 110 mmol/L (98-107); Estimated Creatinine Clearance 72 ml/min; Glucose 103 mg/dl (70-99); Potassium 3.5 mmol/L (3.5-5.1); Sodium 138 mmol/L (135-145); Total Bilirubin 1.4 mg/dl (0.2-1.3); Total Protein 6.8 g/dl (6.3-8.2); eGFR > 60.00
[2024-10-06 19:22] LABS: Magnesium 1.7 mg/dl (1.6-2.3)
--- NOTE | 2024-10-06 19:41 | ITS.CL.PN ---
Inventory Worker - Procedure Note
Procedure
Procedure Note:
CARDIAC CATHETERIZATION REPORT
Date of Procedure: 10/06/2024
Referring: Dr. Pablo Colbert MD, PhD
Indication: NSTEMI
PROCEDURE(S)
1. PCI with TEAGAN to OM1
2. IVUS OM1
3. Additional critical care time 120 minutes
ACCESS: 6F right common femoral artery (sewn in place)
CATHETERS
1. 6F EBU4 guide catheter
MODERATE SEDATION: 180 minutes of moderate sedation was utilized. An independent esthetician and manager medical spa was present to assist with and help manage the patient's level of consciousness and physiologic status.
RADIATION: dose 1438 mGy; DAP 113 Gy*cm2; fluoroscopy time 19.9 min
PCI with TEAGAN to OM1
After placement of a long right femoral artery sheath, heparin was given to achieve ACT>300. The left main was engaged with an EBU4 guide catheter and a Runthrough wire placed in the distal aspect of the OM1. Initial lesion preparation was performed
with a 2.0x12 balloon with full expansion, followed by a 3.0 NC balloon delivered with guideliner support. IVUS was then performed and demonstrated a 3.5 mm reference vessel diameter with short segment non-concentric calcification. A 3.5 mm NC was
inflated throughout the lesion and demonstrated full expansion. Overlapping 3.5x38 and 3.5x12 mm [place] TEAGAN were delivered and deployed, followed by post-dilation with a 3.5 mm NC balloon to high pressure. Care was taken to ensure that the
post-dilation balloon was kept within the stent to avoid disruption of mild calcified plaque at the proximal stent edge.
Final angiography demonstrated full stent expansion and apposition, however, mid way through injection there was contrast extravasation noted from near the ostial LCx / distal LM. This was immediately identified as a potentially life threatening
emergency. I emergently called for CT surgical backup, anesthesia, an additional interventional attending, covered stents, and a pericardiocentesis setup. Reinspection of angiography demonstrated possible mechanism for the perforation as either
ejection of the guideliner into the left main crux during final injection, or pre-existing small proximal stent edge dissection/perforation which upon pressurized injection resulted in propagation of dissection and perforation at the site. The
patient remained hemodynamically stable and without change in symptoms. There were no changes in ST segments on the monitor. Repeat injection was not performed given concern for propagating any possible dissection, however, serial cine without
injection demonstrated relatively stable appearance/location of the contrast extravasation outside the vessel, suggesting that it was not being washed out by further bleeding into the pericardial space. This was confirmed by emergent
echocardiography which demonstrated no effusion and stable anterolateral RWMA unchanged from prior to cath. IVUS was performed over the OM1 wire which demonstrated a well expanded stent without evidence of vessel disruption at the stent edge, ostial
OM, or LM. Multidisciplinary discussion was had to discuss management options, including emergent surgery (likely ligation of the LM with 2 vessel CABG), covered stenting of the LCx ostium or double barreled covered stenting of the left main
bifurcation, or ongoing conservative management with removal of equipment and heparin reversal. Serial assessment had continued to demonstrate stable appearance of the contrast in the pericardium and there were no change on serial echo. The patient
remained stable with no hemodynamic change or change in telemetry. Thus, it was felt that the perforation had likely rapidly self sealed and the best management option was to pull equipment, reverse heparin, and monitor. Wire and guide were removed
and 30 mg protamine given with repeat ACT demonstrating normalization. The patient was monitored for another hour and was stable with no change in echo. He was admitted to the CVICU overnight for observation and the groin sheath sewn in.
CONCLUSIONS
1. PCI with TEAGAN to OM1 (overlapping 3.5x38 and 3.5x12 TEAGAN post dilated to high pressure with a 3.5 mm NC balloon) complicated by acute perforation on final angiography, likely at the proximal stent edge, which appeared to self-seal rapidly without
clinical consequent and was thus managed conservatively.
RECOMMENDATIONS
1. Monitor overnight in ICU
2. Repeat echo POD1 and POD2 to monitor for effusion
3. Can resume apixaban evening of 10/07 and stop ASA after resuming apixaban
4. Cont. Plavix for 12 months
5. GDMT for ICM and HFrEF
6. Aggressive secondary prevention of CAD with risk factor modification including goal LDL<55
7. Outpatient can setup for MICHEAL and CV once recovered from PA
8. Cardiac rehab
Copy to: Epifanio Henson MD, PhD (budget coordinator); Dr. Tyler Ryan MD (PCP)
Signed: Epifanio Henson MD, PhD
[2024-10-06] MEDS: CARDENE 200 IV (19:48)
--- NOTE | 2024-10-06 20:00 | PTCARENOTE ---
received pt from medical laboratory specialist into 2261. pt AAOx3 but forgetful, NSR w/ frequent PVCs per tele monitor, +2 b/l LE edema, +pulses, R hand ecchymotic w/ +1 edema. pox 97% on RA, lungs clear, condom catheter placed, +bs, R fem artery w/ 6 cuban sheath &
A-line. all lines zeroed and flushed. pivx1 intact. plan of care discussed and questions encouraged. see worklist & MAR for nursing interventions
[2024-10-07] VITALS (49 sets, daily range): BP systolic 94–159; BP diastolic 56–86; BMI 27.7
--- NOTE | 2024-10-07 | PTCARENOTE ---
pt resting comfortably in bed w/ at bedside. VSS, NSR w/ frequent PVCs per tele monitor HR 60s assessment remains unchanged at this time
[2024-10-07] MEDS: LOPRESSOR PO (02:53)
[2024-10-07 04:26] LABS: Hematocrit 34.5 % (39.0-52.0); Hemoglobin 11.7 g/dL (13.0-18.0); Mean Corp Hgb Conc. 33.9 g/dL (33.0-37.0); Mean Corpuscular Hgb 31.3 pg (27.0-31.0); Mean Corpuscular Volume 92.2 fL (80.0-94.0); Mean Platelet Volume 10.2 fL (7.4-10.4); Platelet Count 148 10^3/uL (130-400); Red Blood Cell Count 3.74 10^6/uL (4.70-6.10); Red Cell Dist. Width 13.5 % (11.5-14.5); White Blood Cell Count 5.2 10^3/uL (4.8-10.8)
[2024-10-07 04:49] LABS: Blood Urea Nitrogen 25 mg/dl (9-20); Calcium 9.3 mg/dl (8.4-10.2); Carbon Dioxide 25 mmol/L (22-30); Chloride 110 mmol/L (98-107); Estimated Creatinine Clearance 72 ml/min; Glucose 110 mg/dl (70-99); HDL Cholesterol 55 mg/dl; LDL Cholesterol, Calculated 72 mg/dl; Magnesium 1.8 mg/dl (1.6-2.3); Potassium 3.6 mmol/L (3.5-5.1); Sodium 142 mmol/L (135-145); Total Cholesterol 149 mg/dl (50-199); Triglyceride 114 mg/dl (10-149); Very Low Density Lipoprotein 22 mg/dl (0-30); eGFR > 60.00
--- NOTE | 2024-10-07 05:10 | W.PN.UPDATE ---
Update Note
Progress Note Update
Cardiology Update Note:
-No issues overnight. Pt did well, slept well. Alert and oriented x 3
-No c/o CP/SOB
-Cardene gtt was weaned off last night, but back on this AM at 0530 after waking up, should be able to wean off after AM meds
-Hemodynamically stable. Will replete K, 3.6 and mg 1.8
-AM EKG looks good without significant ST changes
-Will need D/C of femoral a-line
--- NOTE | 2024-10-07 07:30 | PTCARENOTE ---
Received pt from glassware defect repairer RN; pt AAOX3 forgetful at times and resting comfortably in bed; Right Femoral A-line, and PIV x1 patent; Lungs diminished; hypoactive bowel sounds; condom catheter in placed; +2 lower extremity edema and +1 right hand
edema noted; weak lower extremity pulses and palpable radial pulses; all surgical sites C/D?I; see nursing documentation for further details.
[2024-10-07] MEDS: ASPIR LOW (ENTERIC COATED) 81 MG PO (08:11)
[2024-10-07] MEDS: PROCARDIA XL (EXTENDED RELEASE) 60 MG PO (08:11)
[2024-10-07] MEDS: LOPRESSOR 25 MG PO (08:11)
[2024-10-07] MEDS: MAGNESIUM OXIDE 500 MG PO ×2 (08:11→19:58)
[2024-10-07] MEDS: CRESTOR 20 MG PO (08:11)
[2024-10-07] MEDS: COZAAR 100 MG PO (08:11)
[2024-10-07] MEDS: PLAVIX 75 MG PO (08:11)
[2024-10-07] MEDS: KCL 40 MEQ PO (08:12)
--- NOTE | 2024-10-07 09:24 | W.PN.CD ---
Addendum entered and electronically signed by Cesar Miguel MD 10/07/24 11:09:
Eliquis tonight
Stop aspirin
Eliquis plavix on discharge
Original Note:
Today's Communication / Plan
-
D/c femoral a-line
cont meds --> transition to Eliquis tomorrow
Increased metop to 50 bid
Likely downgrade later today
Impression / Plan
-
I/P: 84M with CAD (PCI to pRCA, 1998), multidrug resistant HTN, & HLD, who presented with chest pain
Primary Sr. Consultant: Dr. Henson
CAD/NSTEMI now s/p PCI to OM1
-threat to life
- Currently chest pain-free
- Trend troponin to peak: currently at 51.5
- continue ASA, heparin drip, metoprolol
-high risk IV meds/infusions, requires monitoring of labs/tele
-discussed with interventional cards: plavix load
-cath and echo tomorrow
Atrial fibrillation, new, paroxysmal
- Continue
- anticoagulation: Heparin drip for now Eliquis tomorrow
- [id number] score at least 4 (age 84, vascular disease, hypertension)
Lower extremity edema
- chronic, suspect lymphedema
HTN, multidrug resistant
- Continue home medical therapy and follow for goal SBP <130 mmHg
HLD
- LDL above goal (88), was transitioned to rosuvastatin earlier this month
- Goal LDL < 55
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
Subjective: feeling OK today
Physical Exam
Vital Signs/Labs
Vital Signs
Temp Pulse Resp BP Pulse Ox
98.7 F 73 14 149/84 97
10/07/24 08:00 10/07/24 09:00 10/07/24 09:00 10/07/24 09:00 10/07/24 09:18
10/06/24 10/07/24 10/08/24
06:59 06:59 06:59
Actual Weight 211 lb 6.773 oz 215 lb 6.266 oz
10/07/24 04:19
10/07/24 04:19
PT 16.4 Sec (11.4-14.6) H 10/06/24 17:40
INR 1.29 10/06/24 17:40
APTT 66.6 Sec (23.4-35.0) H 10/05/24 13:00
Magnesium 1.8 mg/dl (1.6-2.3) 10/07/24 04:19
Triglycerides 114 mg/dl (10-149) 10/07/24 04:19
LDL Cholesterol, Calc 72 mg/dl 10/07/24 04:19
VLDL Cholesterol, Calc 22 mg/dl (0-30) 10/07/24 04:19
HDL Cholesterol 55 mg/dl 10/07/24 04:19
10/03/24
03:01
Isq-P-Zhemeuvqbco Pept 9140
LAB Results
10/06/24 10/07/24
18:18 04:19
Troponin I 6.100 H* 6.450 H*
Physical Exam
Constitutional: No acute distress and Comfortable
EENT: Anicteric
Cardiovascular: Rhythm/rate is irregular and Pedal edema present
Respiratory: Respiratory effort normal and Other (coarse b/s)
GI: Soft
Neuro/Psych: AO x 3
Data Reviewed
-
Date of Service: October 07, 2024
Medical Decision Making: Reviewed Test Results
EKG: Tracing Personally Visualized and interpreted (af)
Echo: Tracing Personally Visualized and interpreted
Labs: Labs Reviewed by me
--- NOTE | 2024-10-07 10:52 | PTCARENOTE ---
Right Femoral A-line removed by RN and CT TRANSPORT PILOT; NSR PACs and PVCs on monitor and VSS; Right groin dressing C/D/I; pt remains on bedrest.
--- NOTE | 2024-10-07 11:14 | W.PN.HOSP.TC ---
Today's Communication/Plan
-
Repeat echo in the morning.
PT/OT.
Possible discharge tomorrow
Assessment / Plan
Assessment / Plan
Impression:
84 years old male history of CAD, hypertension, presented with non-STEMI.� Also new onset of A-fib.� On IV heparin drip, nitroglycerin, ACS protocol.
Seen by cardiology recommended cardiac cath.
Patient underwent cardiac cath through radial artery 10/05 shows:
1. Coronary artery disease as described with likely culprit stenosis of the large OM1.
2. Mildly elevated LV filling pressure and no aortic stenosis
Plan was either medical management versus repeat cardiac cath with bigger wire through femoral artery.
10/06
Patient underwent cardiac cath s/p stent as per cath report, it was complicated by acute perforation on final angiography, likely at the proximal stent edge, which appeared to self-seal rapidly without clinical consequent and was thus managed
conservatively.
Patient kept in the ICU overnight, repeat echocardiogram to monitor for effusion.
echo 10/07
LV size with moderately reduced systolic function.
LVEF is 30-35% by visual estimation. Anterolateral lateral inferolateral
hypokinesis.
Limited valvular interrogation.
No obvious significant pericardial effusion.
Compared to prior from October 06, 2024, no significant change
Assessment/plan:
Acute NSTEMI:
Continue heparin drip and ACS protocol
On aspirin and beta-blockers
On nitroglycerin drip
Plavix load
Troponin peaked at 51.5
Plan for echocardiogram
Plan for cardiac cath on Saturday
Patient has very high risk of cardiac complications and increased risk morbidity/mortality
Cardiology consult appreciated
10/05
Echocardiogram showed:
Mildly dilated LV with moderately reduced systolic function.
EF is 35-40% by visual estimation. Anterolateral and lateral wall motion
abnormalities.
Stage I diastolic dysfunction suggestive of abnormal relaxation.
Normal right ventricular size and function.
Mild aortic regurgitation.
Insufficient TR for estimation of PASP.
Compared to prior from September 07, 2022, LVEF is now moderately reduced,
previously normal, and there are new wall motion abnormalities described above.
Discussed with at bedside.
For cardiac cath today
10/06
Cardiac cath 10/05 showed:
1. Coronary artery disease as described with likely culprit stenosis of the large OM1.
2. Mildly elevated LV filling pressure and no aortic stenosis
Plan for medical therapy versus repeat cardiac cath with femoral access.
Initially patient elected medical therapy but after discussion with his PCP he changed his mind to repeat cardiac cath.
Patient will go today for repeat cardiac cath
10/07
Patient underwent cardiac cath s/p stent as per cath report, it was complicated by acute perforation on final angiography, likely at the proximal stent edge, which appeared to self-seal rapidly without clinical consequent and was thus managed
conservatively.
Patient kept in the ICU overnight, repeat echocardiogram to monitor for effusion.
echo 10/07
LV size with moderately reduced systolic function.
LVEF is 30-35% by visual estimation. Anterolateral lateral inferolateral
hypokinesis.
Limited valvular interrogation.
No obvious significant pericardial effusion.
Compared to prior from October 06, 2024, no significant change
Discussed with cardiology
Start Eliquis tonight, stop aspirin and discharged on Eliquis and Plavix.
Repeat echocardiogram in a.m.
Paroxysmal atrial fibrillation, newly diagnosed:
Currently off heparin drip
On oral beta-hussain
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
Nonsustained V. tach:
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
Keep electrolytes within decent levels K>4 and mag> 2
Resistant hypertension:
On multiple antihypertensives
Hyperlipidemia:
Continue statin
History of carcinoma sphenoidal sinus:
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
Chronic lower extremity edema:
Likely lymphedema related
Obtain echocardiogram
CODE STATUS: Full code
DVT prophylaxis: Resume Ariadna tate
Diet: Cardiac
Family communication: Discussed with at bedside
Total time spent on today's encounter was 65 minutes which included time spent in counseling the patient/family regarding diagnosis and treatment plan as listed above, goals of care, and symptom management. Case was discussed with nursing staff,
specialists, and care coordinators/case management. All labs and imaging personally reviewed by me. Remainder the time spent in detailed review of previous records, lab data, imaging, and other medical provider documentation.
Anticipated Discharge: Within 24 hours
Subjective/Interval History
-
Date of Service: October 07, 2024
Patient seen and examined at bedside, at bedside, denies any chest pain or shortness of breath.
Objective Data
-
Labs:
Laboratory Results
10/07/24
04:19
WBC 5.2
Hgb 11.7 L
Hct 34.5 L
Plt Count 148
Sodium 142
Potassium 3.6
Chloride 110 H
Carbon Dioxide 25
BUN 25 H
Creatinine 0.9
Glucose 110 H
Calcium 9.3
Vital Signs:
Vital Signs
Temp Pulse Resp BP Pulse Ox
98.7 F 61 18 152/81 99
10/07/24 08:00 10/07/24 10:45 10/07/24 10:45 10/07/24 10:45 10/07/24 10:45
I&O
10/06/24 10/07/24 10/08/24
06:59 06:59 06:59
Intake Total 56 / 56 12.5 / 12.5 480 / 480
Output Total 900 / 900 675 / 675
Balance -844 / -844 -662.5 / -662.5 480 / 480
Physical Exam
-
General: Well Developed, Well Nourished, No Apparent Distress and Comfortable
HEENT: Normocephalic, Atraumatic, Moist Mucous Membranes, No Ptosis, PERRLA and Nose Appears Normal
Respiratory: Clear to Auscultation and Non Labored Respirations
Cardiac: S1/S2 and Irregular Rhythm
Breast: Deferred by me
GI: Soft, Nontender, Nondistended and Normal Bowel Sounds
Genito-urinary: No Costovertebral Tender
Musculoskeletal: No Clubbing, No Cyanosis, Edema, Right Lower Extrem and Edema, Left Lower Extrem
Skin: Warm
Neuro: Awake, Alert, Oriented, AO x 3 and No Motor Deficits
Psych: Calm
Data Reviewed
-
Diagnostic Radiology: Image personally visualized and interpreted and Report Reviewed by me
CT Scan: Image personally visualized and interpreted and Report Reviewed by me
Ultrasound: Image personally visualized and interpreted and Report Reviewed by me
MRI: Image personally visualized and interpreted and Report Reviewed by me
Medical Tests (Nuc Med, Echo etc): Image personally visualized and interpreted and Report Reviewed by me
Labs: Labs Reviewed by me
Old Records: Reviewed
--- NOTE | 2024-10-07 11:33 | CM ---
asked to speak to pt's in room. nurse tells me the has been agitated and confused in the room. pt states she has been a bit forgetful at home but this behavior is different. pt knows she is at [facility] and she is agreeable,
with much convincing, to go home at this time. she states she knows the way home, she has her keys and belongings. Luke Asencio, security, walked pt to transport van to help her locate her car which was right out front.
called pts neighbor, Macy Berger [phone] to update as requested by pt. Macy is in [place] till saturday buit said she will call and make sure she gets home. she also said she will get one of her family members to continuous pickling line pickler helper the pt when
discharged to home. Macy called nurses station and did confirm is home and safe.
--- NOTE | 2024-10-07 15:18 | PTCARENOTE ---
NSR PACS on monitor and VSS; pt remains on bedrest due to sheath removal; pt AAOx3 and forgetful; pt resting comfortably in bed.
--- NOTE | 2024-10-07 17:54 | PTCARENOTE ---
Pt trying to get out of bed stating, 'I need to get out of here this is not my home.'; this RN redirected/educated pt the reason why the pt was in the hospital; this RN assisted pt back to bed and set pt up for dinner; pt refused to eat due to
'those people are trying to kill me'; this RN educated pt once again and pt was easily redirected; pt ate 30% of dinner and refused rest; at this time pt AAOx1; bed alarm on and in place.
--- NOTE | 2024-10-07 19:40 | PTCARENOTE ---
received pt from previous rn. pt resting comfortably in bed at time of assessment. VSS, pt AAOx3 but forgetful, NSR w/ frequent PVCs per tele monitor, HR 60s +2 b/l LE edema, +pulses, R hand ecchymotic w/ +1 edema. pox 96% on RA, lungs clear but
diminished, condom catheter present draining yellow urine. +bs, Right groin dressing C/D/I plan of care discussed and questions encouraged. see worklist & MAR for nursing interventions
--- NOTE | 2024-10-07 19:46 | PTCARENOTE ---
received pt from previous rn. pt resting comfortably in bed at time of assessment. VSS, pt AAOx3 but forgetful, NSR w/ frequent PVCs per tele monitor, HR 60s +2 b/l LE edema, +pulses, R hand ecchymotic w/ +1 edema. pox 96% on RA, lungs clear but
diminished, condom catheter present draining yellow urine. +bs, pivx1 intact. Right groin dressing C/D/I plan of care discussed and questions encouraged. see worklist & MAR for nursing interventions
[2024-10-07] MEDS: ELIQUIS 5 MG PO (19:58)
[2024-10-07] MEDS: LOPRESSOR 50 MG PO (19:58)
--- NOTE | 2024-10-07 21:38 | VATNOTE ---
CALLED TO ASSESS EXISTING IV IN RAC. ENTIRE RUE IS DISCOLORED AND SIGNIFIGANTLY SWOLLEN. PT HAS RECENT HX OF HEMATOMA IN RH, WHICH REMAINS VERY ECCHYMOTIC. PALPABLE CORD IN RAC. PA AT BEDSIDE WELL. SUGGESTED URGENT US TO R/O THROMBUS, WARM
COMPRESSES AND ELEVATION. IV REMOVED DOCUMENTED AND NEW SITE ESTABLISHED IN LW. VAT TO FOLLOW.
--- NOTE | 2024-10-07 23:58 | PTCARENOTE ---
VSS, Sinus celsa per tele monitor HR 40-50s. Pt sent to ultrasound for R arm for hematoma and piv infiltration, pt tolerated and slept through ultrasound and transport. resting comfortably in bed. otherwise assessment remains unchanged
[2024-10-08] VITALS (22 sets, daily range): BP systolic 93–158; BP diastolic 58–82; PULSE 79; BMI 27.2
[2024-10-08 04:13] LABS: Hematocrit 30.2 % (39.0-52.0); Hemoglobin 10.1 g/dL (13.0-18.0); Mean Corp Hgb Conc. 33.4 g/dL (33.0-37.0); Mean Corpuscular Hgb 31.5 pg (27.0-31.0); Mean Corpuscular Volume 94.1 fL (80.0-94.0); Mean Platelet Volume 10.5 fL (7.4-10.4); Platelet Count 122 10^3/uL (130-400); Red Blood Cell Count 3.21 10^6/uL (4.70-6.10); Red Cell Dist. Width 13.6 % (11.5-14.5); White Blood Cell Count 5.3 10^3/uL (4.8-10.8)
--- NOTE | 2024-10-08 04:32 | PTCARENOTE ---
routine labs obtained Sinus celsa per tele monitor, VSS, assessment remains unchanged
[2024-10-08 04:47] LABS: Blood Urea Nitrogen 26 mg/dl (9-20); Calcium 7.6 mg/dl (8.4-10.2); Carbon Dioxide 25 mmol/L (22-30); Chloride 117 mmol/L (98-107); Estimated Creatinine Clearance 93 ml/min; Glucose 98 mg/dl (70-99); Magnesium 1.8 mg/dl (1.6-2.3); Potassium 3.6 mmol/L (3.5-5.1); Sodium 143 mmol/L (135-145); eGFR > 60.00
--- NOTE | 2024-10-08 08:00 | PTCARENOTE ---
Received pt from previous RN; pt AAOx2 forgetful/confused; Sinus Bradycardia on monitor and VSS; PIV x1 patent; Lungs diminished; hypoactive bowel sounds; bladder scanned pt since no urine output for 656mls, pt had an incontinent episode and
rebladder scanned pt for 486; Echo team at bedside; palpable pulses throughout; +2 lower extremity edema not +1 right hand edema noted; all surgical sites C/D/I; see nursing documentation for further details.
--- NOTE | 2024-10-08 08:27 | W.PN.CD ---
Today's Communication / Plan
-
pending repeat chemistry and TTE, stable for discharge today with outpatient CV follow up
Impression / Plan
-
I/P: 84M with CAD (PCI to pRCA, 1998), multidrug resistant HTN, & HLD, who presented with chest pain and NSTEMI. S/p PCI to large OM1/ramus 10/06 c/b contained perforation successfully medically managed.
Primary Industrial Health And Safety Professor: Dr. Henson
CAD/NSTEMI now s/p PCI to OM1 c/b contained perforation
- perforation monitored in laboratory chemical assistant and with serial TTE, no evidence of pericardial effusion of compromise of coronary blood flow
- continue Plavix, apixaban
- will repeat limited TTE today
ICM
- EF newly reduced this admission, hopefully will recover post-PCI
- further titration of GDMT as outpatient appointment 11/04/24, maximize doses of HF GDMT over other non-GDMT antihypertensive (next can add davy and SGLT2i)
- will repeat TTE as outpatient at 3 months
HypoK, HypoCa, limited UOP overnight
- bladder scan, monitor UOP
- repelete lytes
- repeat chemistry panel
Atrial fibrillation, new, paroxysmal
- mostly in sinus celsa last 24 hours
- [id number] score at least 4 (age 84, vascular disease, hypertension)
- cont. apix and plavix
Lower extremity edema
- chronic, suspect lymphedema
HTN, multidrug resistant
- Continue home medical therapy and follow for goal SBP <130 mmHg
- currently well controlled
HLD
- LDL above goal (72), will increase crestor to 40 and add ezetimibe
- Goal LDL < 55
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
Subjective: resting, per nursing intermittent confusion/delium
Physical Exam
Vital Signs/Labs
Vital Signs
Temp Pulse Resp BP Pulse Ox
36.8 C 47 15 128/58 97
10/08/24 04:00 10/08/24 06:15 10/08/24 06:15 10/08/24 06:00 10/08/24 04:00
10/07/24 10/08/24 10/09/24
06:59 06:59 06:59
Actual Weight 97.7 kg 96 kg
10/08/24 04:05
10/08/24 04:05
PT 16.4 Sec (11.4-14.6) H 10/06/24 17:40
INR 1.29 10/06/24 17:40
APTT 66.6 Sec (23.4-35.0) H 10/05/24 13:00
Magnesium 1.8 mg/dl (1.6-2.3) 10/08/24 04:05
Triglycerides 114 mg/dl (10-149) 10/07/24 04:19
LDL Cholesterol, Calc 72 mg/dl 10/07/24 04:19
VLDL Cholesterol, Calc 22 mg/dl (0-30) 10/07/24 04:19
HDL Cholesterol 55 mg/dl 10/07/24 04:19
10/03/24
03:01
[id number] Pept 9140
LAB Results
10/06/24 10/07/24
18:18 04:19
Troponin I 6.100 H* 6.450 H*
Physical Exam
Constitutional: No acute distress
Cardiovascular: Rhythm & rate is regular
Respiratory: Respiratory effort normal
Data Reviewed
-
Date of Service: October 08, 2024
Medical Decision Making: Reviewed Test Results
EKG: Tracing Personally Visualized and interpreted
Echo: Tracing Personally Visualized and interpreted
Labs: Labs Reviewed by me
[2024-10-08] MEDS: LOPRESSOR 50 MG PO ×2 (09:21→20:17)
[2024-10-08] MEDS: PROCARDIA XL (EXTENDED RELEASE) 60 MG PO (09:21)
[2024-10-08] MEDS: MAGNESIUM OXIDE 500 MG PO ×2 (09:21→20:17)
[2024-10-08] MEDS: PLAVIX 75 MG PO (09:21)
[2024-10-08] MEDS: ELIQUIS 5 MG PO (09:21)
[2024-10-08] MEDS: COZAAR 100 MG PO (09:21)
[2024-10-08] MEDS: CRESTOR 40 MG PO (09:23)
[2024-10-08] MEDS: ZETIA 10 MG PO (09:23)
[2024-10-08] MEDS: CRESTOR PO (09:41)
[2024-10-08 10:00] LABS: Urine Albumin 2+ (Neg - Trace); Urine Bilirubin Negative (Negative); Urine Character Slightly Cloudy (Clear); Urine Color Yellow; Urine Glucose Negative (Negative); Urine Ketone 1+ (Negative); Urine Leukocyte 3+ (Negative); Urine Nitrite Positive (Negative); Urine Occult Blood 2+ (Negative); Urine Urobilinogen Negative (Neg - 1+)
--- NOTE | 2024-10-08 10:31 | PTCARENOTE ---
Straight Cath unsuccessful x2 RNs; updated; PT OOB x2 RNs full assist to chair; PT/OT in room with pt, pt AAOx2 confused and agitated; pt refusing to work with them stating, 'I want to just and just get away from me.'; multiple attempts to
redirected pt on working with PT/OT however unsuccessful each time; pt remains in chair with chair alarm on and in place.
[2024-10-08 10:35] LABS: Urine Squamous Cell 0-2 /LPF (Few); Urine Triple Phosphate Crystal Present
[2024-10-08 10:36] LABS: Urine Bacteria Many (Negative); Urine White Cell 30-40 /HPF (0-5)
--- NOTE | 2024-10-08 12:08 | W.PN.HOSP.TC ---
Today's Communication/Plan
-
Started Rocephin
Assessment / Plan
Assessment / Plan
Impression:
84 years old male history of CAD, hypertension, presented with non-STEMI.� Also new onset of A-fib.� On IV heparin drip, nitroglycerin, ACS protocol.
Seen by cardiology recommended cardiac cath.
Patient underwent cardiac cath through radial artery 10/05 shows:
1. Coronary artery disease as described with likely culprit stenosis of the large OM1.
2. Mildly elevated LV filling pressure and no aortic stenosis
Plan was either medical management versus repeat cardiac cath with bigger wire through femoral artery.
10/06
Patient underwent cardiac cath s/p stent as per cath report, it was complicated by acute perforation on final angiography, likely at the proximal stent edge, which appeared to self-seal rapidly without clinical consequent and was thus managed
conservatively.
Patient kept in the ICU overnight, repeat echocardiogram to monitor for effusion.
echo 10/07
LV size with moderately reduced systolic function.
LVEF is 30-35% by visual estimation. Anterolateral lateral inferolateral
hypokinesis.
Limited valvular interrogation.
No obvious significant pericardial effusion.
Compared to prior from October 06, 2024, no significant change
Got confused, urinalysis shows UTI, started on Rocephin
Assessment/plan:
Acute NSTEMI:
Continue heparin drip and ACS protocol
On aspirin and beta-blockers
On nitroglycerin drip
Plavix load
Troponin peaked at 51.5
Plan for echocardiogram
Plan for cardiac cath on Saturday
Patient has very high risk of cardiac complications and increased risk morbidity/mortality
Cardiology consult appreciated
10/05
Echocardiogram showed:
Mildly dilated LV with moderately reduced systolic function.
EF is 35-40% by visual estimation. Anterolateral and lateral wall motion
abnormalities.
Stage I diastolic dysfunction suggestive of abnormal relaxation.
Normal right ventricular size and function.
Mild aortic regurgitation.
Insufficient TR for estimation of PASP.
Compared to prior from September 07, 2022, LVEF is now moderately reduced,
previously normal, and there are new wall motion abnormalities described above.
Discussed with at bedside.
For cardiac cath today
10/06
Cardiac cath 10/05 showed:
1. Coronary artery disease as described with likely culprit stenosis of the large OM1.
2. Mildly elevated LV filling pressure and no aortic stenosis
Plan for medical therapy versus repeat cardiac cath with femoral access.
Initially patient elected medical therapy but after discussion with his PCP he changed his mind to repeat cardiac cath.
Patient will go today for repeat cardiac cath
10/07
Patient underwent cardiac cath s/p stent as per cath report, it was complicated by acute perforation on final angiography, likely at the proximal stent edge, which appeared to self-seal rapidly without clinical consequent and was thus managed
conservatively.
Patient kept in the ICU overnight, repeat echocardiogram to monitor for effusion.
echo 10/07
LV size with moderately reduced systolic function.
LVEF is 30-35% by visual estimation. Anterolateral lateral inferolateral
hypokinesis.
Limited valvular interrogation.
No obvious significant pericardial effusion.
Compared to prior from October 06, 2024, no significant change
Discussed with cardiology
Start Eliquis tonight, stop aspirin and discharged on Eliquis and Plavix.
Repeat echocardiogram in a.m.
10/08
Repeat echo pending
Paroxysmal atrial fibrillation, newly diagnosed:
Eliquis
On oral beta-hussain
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
Acute metabolic encephalopathy.
Possible secondary to UTI.
Started Rocephin.
.
UTI.
Continue Rocephin.
Pending urine culture.
Nonsustained V. tach:
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
Keep electrolytes within decent levels K>4 and mag> 2
Resistant hypertension:
On multiple antihypertensives
Hyperlipidemia:
Continue statin
History of carcinoma sphenoidal sinus:
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
Chronic lower extremity edema:
Likely lymphedema related
Obtain echocardiogram
CODE STATUS: Full code
DVT prophylaxis: Resume Eliquis tonight
Diet: Cardiac
Family communication: Discussed with at bedside
Total time spent on today's encounter was 65 minutes which included time spent in counseling the patient/family regarding diagnosis and treatment plan as listed above, goals of care, and symptom management. Case was discussed with nursing staff,
specialists, and care coordinators/case management. All labs and imaging personally reviewed by me. Remainder the time spent in detailed review of previous records, lab data, imaging, and other medical provider documentation.
Anticipated Discharge: Within 24 hours
Subjective/Interval History
-
Date of Service: October 08, 2024
Patient was confused in the morning and combative.
Urinalysis shows evidence of UTI.
Patient was not able to ambulate with physical therapy and they recommended rehab.
Started Rocephin.
Objective Data
-
Labs:
Laboratory Results
10/08/24 10/08/24
04:05 11:50
WBC 5.3
Hgb 10.1 L
Hct 30.2 L
Plt Count 122 L
Sodium 143 Pending
Potassium 3.6 Pending
Chloride 117 H Pending
Carbon Dioxide 25 Pending
BUN 26 H Pending
Creatinine 0.7 Pending
Glucose 98 Pending
Calcium 7.6 L D Pending
Total Bilirubin Pending
AST Pending
ALT Pending
Alkaline Phosphatase Pending
Vital Signs:
Vital Signs
Temp Pulse Resp BP Pulse Ox
97.5 F 46 22 93/63 97
10/08/24 08:00 10/08/24 11:30 10/08/24 09:31 10/08/24 10:23 10/08/24 10:49
I&O
10/07/24 10/08/24 10/09/24
06:59 06:59 06:59
Intake Total 12.5 / 12.5 480 / 480
Output Total 675 / 675 500 / 500
Balance -662.5 / -662.5 -20 / -20
Physical Exam
-
General: No Apparent Distress and Comfortable
HEENT: Normocephalic, Atraumatic, Moist Mucous Membranes, No Ptosis, PERRLA and Nose Appears Normal
Respiratory: Clear to Auscultation and Non Labored Respirations
Cardiac: S1/S2 and Irregular Rhythm
Breast: Deferred by me
GI: Soft, Nontender, Nondistended and Normal Bowel Sounds
Genito-urinary: No Costovertebral Tender
Musculoskeletal: No Clubbing, No Cyanosis, Edema, Right Lower Extrem and Edema, Left Lower Extrem
Skin: Warm
Neuro: Awake, Alert and Oriented
Psych: Confused and Agitated
[2024-10-08 12:15] LABS: ALT (SGPT) 17 U/L (0-50); AST (SGOT) 30 U/L (17-59); Albumin 2.7 g/dl (3.5-5.0); Alkaline Phosphatase 28 U/L (38-126); Blood Urea Nitrogen 29 mg/dl (9-20); Calcium 8.3 mg/dl (8.4-10.2); Carbon Dioxide 28 mmol/L (22-30); Chloride 113 mmol/L (98-107); Estimated Creatinine Clearance 81 ml/min; Glucose 111 mg/dl (70-99); Magnesium 1.9 mg/dl (1.6-2.3); Potassium 4.6 mmol/L (3.5-5.1); Sodium 142 mmol/L (135-145); Total Bilirubin 1.2 mg/dl (0.2-1.3); Total Protein 5.6 g/dl (6.3-8.2); eGFR > 60.00
[2024-10-08] MEDS: ROCEPHIN 1000 MG IV ×2 (12:20→17:52)
[2024-10-08] MEDS: STERILE WATER FOR INJECTION 10 ML IV ×2 (12:20→17:51)
--- NOTE | 2024-10-08 13:01 | PTCARENOTE ---
Sinus Bradycardia on monitor and VSS; pt resting comfortably in chair with bed alarm on; pt eating lunch and appropriate with RN.
--- NOTE | 2024-10-08 13:22 | PTCARENOTE ---
Pt has not voided, bladder scanned pt for 580mls, pt stated 'I do not have to urinate'; updated MD.
--- NOTE | 2024-10-08 14:46 | PTCARENOTE ---
Coude Maria Catheter attempted by 2 RNs unsuccessful; pt had incontinent episode, rescanned pt for 450mls; Urology update and will be in to see pt.
[2024-10-08] MEDS: LIDOCAINE URO-JET 2% 1 SYRINGE TOPICAL ×2 (15:34→16:25)
--- NOTE | 2024-10-08 16:13 | CM ---
Reviewed chart. Met with Mr. Vogel to review discharge plans. Reviewed the medical team recommendations for SNF/Rehab. with him. Reviewed SNF/Rehab. at [facility] because it is in network and close to his home. He was agreeable to
looking for a SNF/Rehab. Telephone call to [facility] Admissions to make the referral. Referral sent. [facility] does not have an available bed. Telephone heather to his neighbor, Macy to update her on discharge plans and recommendations.
Reviewed with her the teams recommendation for SNF/Rehab. We reviewed the in-network providers for his insurance. Macy states Mr. Vogel knows the [place] the best and was willing to have a referral sent to [facility].
Telephone call to [facility] Admissions to make the referral. Will send the referral. will need to pre-cert with his insurance once SNF is available. Medical work-up in progress. The discharge plan is to go to SNF when bed
available , approve by insurance and medically stable.
--- NOTE | 2024-10-08 16:16 | CONS.URO ---
Consultation
-
Date/Time Consultation Performed: 10/08/24 1500
Requesting Provider: Arianna
Performing Provider: Itzel
Reason for Consultation: urinary retention, difficult Maria catheter placement
Medical History
History of Present Illness
84M w/ prior urologic h/o urethral stricture (saw urologist ~20 yrs ago) s/p cystoscopy and stricture dilation presenting w/ urinary retention.
Dribbling small amounts of urine w/ bladder scans 400-600 cc.
[facility] RNs attempted regular and Coude Maria catheters w/ significant resistance [address]
Minimal bleeding noted per meatus.
s/p PCI for NSTEMI on 10/06.
On Plavix and apixaban.
Past Medical History
Past Medical History: CAD and HTN
Past Surgical History: Cardiac (PCI for NSTEMI 10/06)
Social History
Tobacco: Non-smoker
Alcohol: None
Drug: None
Personal:
Living: With Family
Employment: Retired
Family History
Family History: Reviewed & Not Pertinent
Allergies/Home Medications
Allergies
Allergy/AdvReac Type Severity Reaction Status Date / Time
No Known Allergies Allergy Unverified 10/02/24 17:32
Home Medications
�Medication �Instructions �Recorded �Confirmed �Type
aspirin 81 mg tablet,delayed 81 mg PO DAILY 10/02/24 10/02/24 History
release
calcium 600 mg (as 1 tab PO DAILY 10/02/24 10/02/24 History
carbonate)-vitamin D3 10 mcg (400
unit) tablet (Calcium 600 + D(3))
hydralazine 25 mg tablet 25 mg PO BID 10/02/24 10/02/24 History
losartan 100 mg tablet 100 mg PO DAILY 10/02/24 10/02/24 History
metoprolol tartrate 50 mg tablet 25 mg PO BID 10/02/24 10/02/24 History
(Lopressor)
nifedipine 60 mg tablet,extended 60 mg PO DAILY 10/02/24 10/02/24 History
release 24 hr
potassium chloride 10 mEq 10 meq PO Q48H 10/02/24 10/02/24 History
tablet,extended release
rosuvastatin 20 mg tablet (Crestor) 20 mg PO DAILY 10/02/24 10/02/24 History
sennosides 8.6 mg tablet (senna) 8.6 mg PO HSPRN PRN constipation 10/02/24 10/02/24 History
triamterene 37.5 1 tab PO DAILY 10/02/24 10/02/24 History
mg-hydrochlorothiazide 25 mg tablet
Review of Systems
-
History Source: Patient
A 12 point Review of Systems was completed except as noted: Yes
Physical Exam
Vital Signs
Vital Signs
Temp Pulse Resp BP Pulse Ox
97.6 F 62 20 105/68 97
10/08/24 12:00 10/08/24 14:30 10/08/24 12:00 10/08/24 11:42 10/08/24 12:00
Lab / Testing Results
Laboratory Results
10/08/24 04:05
10/08/24 11:50
Physical Exam
General: Well Developed and Well Nourished
HEENT: Normocephalic and Anicteric
Respiratory: Non Labored Respirations
Cardiac: Regular Rhythm
Breast: N/A
GI: Soft, Non Tender and Non Distended
Rectal: Deferred by Provider
Genito-urinary: No Costovertebral Tend and Other (minimal clots per meatus)
Musculoskeletal: Edema
Skin: Warm and Dry
Neuro: AO x 3, No Motor Deficits and Nonfocal/Grossly Intact
Hematologic/Lymphatic: No Lymphadenopathy
Psych: Intact Judgement and Agitated
Assessment / Plan
-
Acute urinary retention
Difficult Maria catheter placement
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
H/o urethral stricture s/p dilation (~20 yrs ago)
Data Reviewed
-
Total Time Spent with Patient (in minutes): 55
Lab Data: Labs Reviewed and Discussed with Physician
Old Records: Reviewed
--- NOTE | 2024-10-08 16:22 | W.IMMPOSTOP ---
Surgical Immed Post Op Note
-
Primary Surgeon: Itzel
Pre-op Diagnosis:
1. Acute urinary retention
2. Difficult catheter placement
3. H/o urethral stricture s/p dilation
Post-op Diagnosis: Same, bulbar urethral false passage from catheter trauma
Procedure Performed:
1. Cystoscopy
2. Dilation of urethral stricture (sequential S-curve dilators)
3. Complicated catheter placement (over Guidewire)
Anesthesia Type: Intraurethral lidocaine jelly
Specimen / Cultures: None/None
Estimated Blood Loss: Negligible
Drains: 18Fr [place] catheter (10 cc in balloon)
Complications: None
Operative Findings:
1. Small right lateral false passage in bulbar urethra from catheter attempts
2. True urethral lumen w/ fibrotic changes c/w stricture noted - cannulized w/ Guidewire and intubated w/ flexible cystoscope
3. Globally trabeculated bladder w/ cellule and diverticulum formation
--- NOTE | 2024-10-08 16:35 | PTCARENOTE ---
Dr Robbins at bedside and consent signed by pt; see MD note for details; 16F Councill Model Red Latex Catheter placed by MD; 400mls of yellow/lona urine collected; Sinus Bradycardia on monitor and VSS; assessment unchanged pt AAOx3 and forgetful.
--- NOTE | 2024-10-08 20:04 | PTCARENOTE ---
received pt from previous rn. pt resting comfortably in bed at time of assessment. VSS, pt AAOx3 but forgetful, NSR w/ frequent PVCs per tele monitor, HR 70s +2 b/l LE edema, +pulses, R hand ecchymotic w/ +1 edema. pox 99% on RA, lungs clear but
diminished, reis draining clear yellow urine. pt bleeding out urethra, large clots pulled out of foreskin, reis care provided, CTPA made aware. +bs, pt passing flatus. Right groin dressing C/D/I plan of care discussed and questions encouraged.
see worklist & MAR for nursing interventions
[2024-10-08] MEDS: ELIQUIS PO (20:15)
[2024-10-09] VITALS (12 sets, daily range): BP systolic 88–145; BP diastolic 55–78; PULSE 60–61; BMI 27.2
--- NOTE | 2024-10-09 00:46 | PTCARENOTE ---
pt resting comfortably in bed, Sinus celsa per tele monitor HR 50s, pt urethra site cleaned and now draining minimal amount of blood, otherwise assessment remains unchanged
--- NOTE | 2024-10-09 04:30 | PTCARENOTE ---
labs obtained, VSS, SB per tele monitor assessment remains unchanged
[2024-10-09 04:46] LABS: Hematocrit 32.3 % (39.0-52.0); Mean Corp Hgb Conc. 34.1 g/dL (33.0-37.0); Mean Corpuscular Hgb 31.6 pg (27.0-31.0); Mean Corpuscular Volume 92.8 fL (80.0-94.0); Mean Platelet Volume 10.4 fL (7.4-10.4); Platelet Count 143 10^3/uL (130-400); Red Blood Cell Count 3.48 10^6/uL (4.70-6.10); Red Cell Dist. Width 13.4 % (11.5-14.5); White Blood Cell Count 5.4 10^3/uL (4.8-10.8)
[2024-10-09 05:17] LABS: Blood Urea Nitrogen 33 mg/dl (9-20); Calcium 9.4 mg/dl (8.4-10.2); Carbon Dioxide 30 mmol/L (22-30); Chloride 106 mmol/L (98-107); Estimated Creatinine Clearance 65 ml/min; Glucose 105 mg/dl (70-99); Potassium 4.5 mmol/L (3.5-5.1); Sodium 140 mmol/L (135-145); eGFR > 60.00
--- NOTE | 2024-10-09 07:30 | PTCARENOTE ---
Pt received from outgoing RN, pt in bed sleeping, arousable with touch, follow commands, confused to time and place currently, reis per urology, NSR/SB, VSS, RA, PIV x1, sp pci rt groin intact, bedrest, oob with x2 assist, pending placement to SNF
with rehab.
[2024-10-09] MEDS: CRESTOR 40 MG PO (09:17)
[2024-10-09] MEDS: COZAAR 100 MG PO (09:17)
[2024-10-09] MEDS: ZETIA 10 MG PO (09:17)
[2024-10-09] MEDS: ELIQUIS 5 MG PO ×2 (09:17→21:50)
[2024-10-09] MEDS: LOPRESSOR 50 MG PO ×2 (09:17→21:50)
[2024-10-09] MEDS: PLAVIX 75 MG PO (09:18)
[2024-10-09] MEDS: PROCARDIA XL (EXTENDED RELEASE) 60 MG PO (09:18)
--- NOTE | 2024-10-09 11:48 | PTCARENOTE ---
Pt reassessment unchanged from previous, vss, NSR/SB, RA, pending rehab placement, Pt/OT, PIV,
[2024-10-09] MEDS: ROCEPHIN 1000 MG IV (12:02)
[2024-10-09] MEDS: STERILE WATER FOR INJECTION 10 ML IV (12:02)
--- NOTE | 2024-10-09 15:13 | W.PN.HOSP.TC ---
Today's Communication/Plan
-
Medically cleared for discharge once bed available.
Assessment / Plan
Assessment / Plan
Impression:
84 years old male history of CAD, hypertension, presented with non-STEMI.� Also new onset of A-fib.� On IV heparin drip, nitroglycerin, ACS protocol.
Seen by cardiology recommended cardiac cath.
Patient underwent cardiac cath through radial artery 10/05 shows:
1. Coronary artery disease as described with likely culprit stenosis of the large OM1.
2. Mildly elevated LV filling pressure and no aortic stenosis
Plan was either medical management versus repeat cardiac cath with bigger wire through femoral artery.
10/06
Patient underwent cardiac cath s/p stent as per cath report, it was complicated by acute perforation on final angiography, likely at the proximal stent edge, which appeared to self-seal rapidly without clinical consequent and was thus managed
conservatively.
Patient kept in the ICU overnight, repeat echocardiogram to monitor for effusion.
echo 10/07
LV size with moderately reduced systolic function.
LVEF is 30-35% by visual estimation. Anterolateral lateral inferolateral
hypokinesis.
Limited valvular interrogation.
No obvious significant pericardial effusion.
Compared to prior from October 06, 2024, no significant change
Got confused, urinalysis shows UTI, started on Rocephin
Acute urinary retention required urology consult and patient had cystoscopy with dilation of urethral stricture and complicated catheter placement over guidewire.
Mental status improved, patient was started on Rocephin for UTI.
Assessment/plan:
Acute NSTEMI:
Continue heparin drip and ACS protocol
On aspirin and beta-blockers
On nitroglycerin drip
Plavix load
Troponin peaked at 51.5
Plan for echocardiogram
Plan for cardiac cath on Saturday
Patient has very high risk of cardiac complications and increased risk morbidity/mortality
Cardiology consult appreciated
10/05
Echocardiogram showed:
Mildly dilated LV with moderately reduced systolic function.
EF is 35-40% by visual estimation. Anterolateral and lateral wall motion
abnormalities.
Stage I diastolic dysfunction suggestive of abnormal relaxation.
Normal right ventricular size and function.
Mild aortic regurgitation.
Insufficient TR for estimation of PASP.
Compared to prior from September 07, 2022, LVEF is now moderately reduced,
previously normal, and there are new wall motion abnormalities described above.
Discussed with at bedside.
For cardiac cath today
10/06
Cardiac cath 10/05 showed:
1. Coronary artery disease as described with likely culprit stenosis of the large OM1.
2. Mildly elevated LV filling pressure and no aortic stenosis
Plan for medical therapy versus repeat cardiac cath with femoral access.
Initially patient elected medical therapy but after discussion with his PCP he changed his mind to repeat cardiac cath.
Patient will go today for repeat cardiac cath
10/07
Patient underwent cardiac cath s/p stent as per cath report, it was complicated by acute perforation on final angiography, likely at the proximal stent edge, which appeared to self-seal rapidly without clinical consequent and was thus managed
conservatively.
Patient kept in the ICU overnight, repeat echocardiogram to monitor for effusion.
echo 10/07
LV size with moderately reduced systolic function.
LVEF is 30-35% by visual estimation. Anterolateral lateral inferolateral
hypokinesis.
Limited valvular interrogation.
No obvious significant pericardial effusion.
Compared to prior from October 06, 2024, no significant change
Discussed with cardiology
Start Eliquis tonight, stop aspirin and discharged on Eliquis and Plavix.
Repeat echocardiogram in a.m.
10/08
Repeat echo stable.
Paroxysmal atrial fibrillation, newly diagnosed:
Eliquis
On oral beta-hussain
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
Acute metabolic encephalopathy.
Possible secondary to UTI.
Started Rocephin.
.
UTI.
Continue Rocephin.
Urine culture positive for gram-negative bacilli.
Pending final sensitivity.
Acute urinary retention
Urology consulted
s/p cystoscopy with dilation of urethral stricture and complicated catheter placement over guidewire.
Discharged with Maria.
Nonsustained V. tach:
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
Keep electrolytes within decent levels K>4 and mag> 2
Resistant hypertension:
On multiple antihypertensives
Hyperlipidemia:
Continue statin
History of carcinoma sphenoidal sinus:
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
Chronic lower extremity edema:
Likely lymphedema related
Obtain echocardiogram
CODE STATUS: Full code
DVT prophylaxis: Resume Eliquis tonight
Diet: Cardiac
Family communication: Discussed with at bedside
Total time spent on today's encounter was 65 minutes which included time spent in counseling the patient/family regarding diagnosis and treatment plan as listed above, goals of care, and symptom management. Case was discussed with nursing staff,
specialists, and care coordinators/case management. All labs and imaging personally reviewed by me. Remainder the time spent in detailed review of previous records, lab data, imaging, and other medical provider documentation.
Anticipated Discharge: Today
Subjective/Interval History
-
Date of Service: October 09, 2024
Patient seen and examined at bedside, patient is more cooperative, more awake and oriented today.
Status post cystoscopy/dilation of urethral stricture by urologist yesterday.
Denies any chest pain or shortness of breath, no abdominal pain, no nausea, no vomiting, no diarrhea or constipation.
Objective Data
-
Labs:
Laboratory Results
10/09/24 10/09/24
04:27 04:29
WBC 5.4
Hgb 11.0 L
Hct 32.3 L
Plt Count 143
Sodium 140
Potassium 4.5
Chloride 106
Carbon Dioxide 30
BUN 33 H
Creatinine 1.0
Glucose 105 H
Calcium 9.4
Vital Signs:
Vital Signs
Temp Pulse Resp BP Pulse Ox
97.5 F 48 16 88/55 100
10/09/24 12:04 10/09/24 12:04 10/09/24 12:04 10/09/24 12:04 10/09/24 12:04
I&O
10/08/24 10/09/24 10/10/24
06:59 06:59 06:59
Intake Total 480 / 480
Output Total 500 / 500 1700 / 1700 100 / 100
Balance -20 / -20 -1700 / -1700 -100 / -100
Physical Exam
-
General: No Apparent Distress and Comfortable
HEENT: Normocephalic, Atraumatic, Moist Mucous Membranes, No Ptosis, PERRLA and Nose Appears Normal
Respiratory: Clear to Auscultation and Non Labored Respirations
Cardiac: S1/S2 and Irregular Rhythm
Breast: Deferred by me
GI: Soft, Nontender, Nondistended and Normal Bowel Sounds
Genito-urinary: No Costovertebral Tender
Musculoskeletal: No Clubbing, No Cyanosis, Edema, Right Lower Extrem and Edema, Left Lower Extrem
Skin: Warm
Neuro: Awake, Alert and Oriented
Psych: Confused and Agitated
Data Reviewed
-
Diagnostic Radiology: Image personally visualized and interpreted and Report Reviewed by me
CT Scan: Image personally visualized and interpreted and Report Reviewed by me
Ultrasound: Image personally visualized and interpreted and Report Reviewed by me
MRI: Image personally visualized and interpreted and Report Reviewed by me
Medical Tests (Nuc Med, Echo etc): Image personally visualized and interpreted and Report Reviewed by me
Labs: Labs Reviewed by me
Old Records: Reviewed
--- NOTE | 2024-10-09 15:35 | CM ---
Reviewed chart. Met with Mr. Vogel to review discharge plans. Reviewed SNF rehab. with him. Reviewed referral made to [facility] Admission. [facility] Admissions states they do not have an available bed. Telephone
call to [facility] Admissions to check if they accept his insurance. [facility] does not accept his insurance. Telephone call to [facility] Admission to make the referral. Referral sent. Telephone call
to [facility] Admissions to make the referral. Sent referral. Received message from [facility] Admission who states they do not have a bed until next week. Awaiting to see if bed is available. Will need to pre-cert with his insurance once
bed is available. Telephone call to neighbor, Macy to update her. Medical work-up in progress. The discharge plan is to go to SNF/Rehab. when bed available and approved by his insurance.
--- NOTE | 2024-10-09 16:07 | PTCARENOTE ---
Pt reassessment unchanged from previous, vss, ra, NSr,sb, downgrade to IVu, PIV, reis, oob with walker x2 assist.
--- NOTE | 2024-10-09 17:38 | W.PN.CD ---
Today's Communication / Plan
-
medically stable for discharge pending rehab bed availability
Impression / Plan
-
I/P: 84M with CAD (PCI to pRCA, 1998), multidrug resistant HTN, & HLD, who presented with chest pain and NSTEMI. S/p PCI to large OM1/ramus 10/06 c/b contained perforation successfully medically managed.
Primary Supervisor Customer Records Division: Dr. Henson
CAD/NSTEMI now s/p PCI to OM1 c/b contained perforation
- perforation monitored in cath lab tech and with serial TTE, no evidence of pericardial effusion of compromise of coronary blood flow
- serial TTE on floor without evidence of tamponade, stable RWMA
- continue Plavix, apixaban
ICM
- EF newly reduced this admission, hopefully will recover post-PCI
- further titration of GDMT as outpatient appointment 11/04/24, maximize doses of HF GDMT over other non-GDMT antihypertensive (next can add davy and SGLT2i)
- will repeat TTE as outpatient at 3 months
Urinary retention and stricture
- s/p stricture dilation 10/07
- reis
- urology following
Atrial fibrillation, new, paroxysmal
- mostly in sinus celsa last 24 hours
- [id number] score at least 4 (age 84, vascular disease, hypertension)
- cont. apix and plavix
Lower extremity edema
- chronic, suspect lymphedema
HTN, multidrug resistant
- Continue home medical therapy and follow for goal SBP <130 mmHg
- currently well controlled
HLD
- LDL above goal (72), will increase crestor to 40 and add ezetimibe
- Goal LDL < 55
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
Physical Exam
Vital Signs/Labs
Vital Signs
Temp Pulse Resp BP Pulse Ox
36.4 C 62 17 114/61 100
10/09/24 15:38 10/09/24 16:00 10/09/24 15:38 10/09/24 15:38 10/09/24 15:38
10/08/24 10/09/24 10/10/24
06:59 06:59 06:59
Actual Weight 96 kg 95.9 kg
10/09/24 04:27
10/09/24 04:29
PT 16.4 Sec (11.4-14.6) H 10/06/24 17:40
INR 1.29 10/06/24 17:40
APTT 66.6 Sec (23.4-35.0) H 10/05/24 13:00
Magnesium 1.9 mg/dl (1.6-2.3) 10/08/24 11:50
Triglycerides 114 mg/dl (10-149) 10/07/24 04:19
LDL Cholesterol, Calc 72 mg/dl 10/07/24 04:19
VLDL Cholesterol, Calc 22 mg/dl (0-30) 10/07/24 04:19
HDL Cholesterol 55 mg/dl 10/07/24 04:19
10/03/24
03:01
Vdd-L-Efvzittmvnm Pept 9140
LAB Results
10/06/24 10/07/24
18:18 04:19
Troponin I 6.100 H* 6.450 H*
Physical Exam
Constitutional: No acute distress
Cardiovascular: Rhythm & rate is regular
Respiratory: Respiratory effort normal
Data Reviewed
-
Date of Service: October 09, 2024
Medical Decision Making: Reviewed Test Results
EKG: Tracing Personally Visualized and interpreted
Echo: Tracing Personally Visualized and interpreted
Labs: Labs Reviewed by me
--- NOTE | 2024-10-09 20:45 | PTCARENOTE ---
Pt awoke from nap at 2020. Trying to get OOB. Confused to place, time, purpose. Stated he was leaving to go back home.Pt reoriented and remained oriented while awake. Explained to him his course of hospitalization and need for rehab bed. Pt
verbalized understanding. Speech clear. Follows commands x 4. L foot drop noted. No drift BUE, BLE.
Room air sat 97%. BBS present. Decreased B bases. CDB encouraged. Audible heart tones. Pt in SR-SB, with occasional PACs and PVCs. BP 140-130's systolic. R arm with old infiltrated IV. Edematous. Extensive bruising top inferior forearm/elbow. R
radial LHC site and old R femoral arterial sheath site checked per protocol. See flowsheet. +2 pitting BLE edema. L pedal noted to be +3, R pedal +2. Dominic NATHAN notified. No new orders given. L foot/leg without pain. Cap refill < 2 seconds. No
redness seen. DP and PT pulses found via doppler. R DP pulse normal. Denies CP.
Belly soft, nontender. Hypoactive bs x 4. Passing flatus. Indwelling urinary catheter placed by urology to drain with clear, yellow urine. Bed alarm remains intact. Ongoing plan of care.
[2024-10-10] VITALS (10 sets, daily range): BP systolic 73–135; BP diastolic 49–71
[2024-10-10] MEDS: TYLENOL 650 MG PO (00:34)
--- NOTE | 2024-10-10 00:35 | PTCARENOTE ---
Pt given CHG bath, face washed, mouth care done at 2300 on 10/09/24. C/O chronic posterior neck pain. Discussed with PA. Tylenol 650 mg given prn. See MAR. Pt remains confused to place, purpose, and time when awakening from sleep yet remains able to
be reoriented. Pt encouraged to go to sleep. Ongoing plan of care.
--- NOTE | 2024-10-10 03:55 | PTCARENOTE ---
VS done. See flowsheet. Pt without c/o pain. Reoriented to place, purpose, time. Pt going back to sleep.
--- NOTE | 2024-10-10 05:30 | PTCARENOTE ---
Labs drawn and sent. Pt in SB, occasional PACs. PVCs. Bed alarm remains on. Pt states he'd like to sleep.
[2024-10-10 06:10] LABS: Hematocrit 30.3 % (39.0-52.0); Hemoglobin 10.4 g/dL (13.0-18.0); Mean Corp Hgb Conc. 34.3 g/dL (33.0-37.0); Mean Corpuscular Hgb 31.8 pg (27.0-31.0); Mean Corpuscular Volume 92.7 fL (80.0-94.0); Mean Platelet Volume 10.6 fL (7.4-10.4); Platelet Count 143 10^3/uL (130-400); Red Blood Cell Count 3.27 10^6/uL (4.70-6.10); Red Cell Dist. Width 13.2 % (11.5-14.5); White Blood Cell Count 4.4 10^3/uL (4.8-10.8)
[2024-10-10 06:33] LABS: Blood Urea Nitrogen 40 mg/dl (9-20); Calcium 9.2 mg/dl (8.4-10.2); Carbon Dioxide 33 mmol/L (22-30); Chloride 105 mmol/L (98-107); Estimated Creatinine Clearance 65 ml/min; Glucose 102 mg/dl (70-99); Potassium 4.5 mmol/L (3.5-5.1); Sodium 139 mmol/L (135-145); eGFR > 60.00
--- NOTE | 2024-10-10 07:11 | W.PN.UPDATE ---
Update Note
Progress Note Update
s/p difficult reis placement
cath in place
urine remains clear
discharge with cath and outpt f/u with dr olmos
[2024-10-10] MEDS: COZAAR 100 MG PO (08:36)
[2024-10-10] MEDS: PLAVIX 75 MG PO (08:36)
[2024-10-10] MEDS: ZETIA 10 MG PO (08:36)
[2024-10-10] MEDS: LOPRESSOR 50 MG PO ×2 (08:36→19:26)
[2024-10-10] MEDS: PROCARDIA XL (EXTENDED RELEASE) 60 MG PO (08:36)
[2024-10-10] MEDS: ELIQUIS 5 MG PO ×2 (08:36→19:26)
[2024-10-10] MEDS: CRESTOR 40 MG PO (08:36)
--- NOTE | 2024-10-10 09:26 | PTCARENOTE ---
sinus bradycardia on tele w PVCs, VSS, pt denies CP or SOB. Assisted oob to chair using rolling walker. pt remains forgetful, chair alarm in place. Reviewed safety precautions w the pt and questions encouraged.
--- NOTE | 2024-10-10 12:00 | PTCARENOTE ---
VSS, sinus rhythm on tele, reis care completed.
--- NOTE | 2024-10-10 12:03 | W.PN.CD ---
Today's Communication / Plan
-
- Can move to IVU
- continue Plavix, apixaban
- Ambulate -PT/OT
Impression / Plan
-
I/P: 84[facility] multidrug resistant HTN, & HLD, who presented with chest pain and NSTEMI. S/p PCI to large OM1/ramus 10/06 c/b contained perforation successfully medically managed.
Primary Glass Forming Engineer: Dr. Henson
CAD/NSTEMI now s/p PCI to OM1 c/b contained perforation
- perforation monitored in dental laboratory manager and with serial TTE, no evidence of pericardial effusion of compromise of coronary blood flow
- serial TTE on floor without evidence of tamponade, stable RWMA
- continue Plavix, apixaban
ICM
- EF newly reduced this admission, hopefully will recover post-PCI
- further titration of GDMT as outpatient appointment 11/04/24, maximize doses of HF GDMT over other non-GDMT antihypertensive (next can add davy and SGLT2i)
- will repeat TTE as outpatient at 3 months
Urinary retention and stricture
- s/p stricture dilation 10/07
- reis
- urology following
Atrial fibrillation, new, paroxysmal
- mostly in sinus celsa last 24 hours
- [id number] score at least 4 (age 84, vascular disease, hypertension)
- cont. apix and plavix
Lower extremity edema
- chronic, suspect lymphedema
HTN, multidrug resistant
- Continue home medical therapy and follow for goal SBP <130 mmHg
- currently well controlled
HLD
- LDL above goal (72), will increase crestor to 40 and add ezetimibe
- Goal LDL < 55
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
Physical Exam
Vital Signs/Labs
Vital Signs
Temp Pulse Resp BP Pulse Ox
97.6 F 53 16 93/50 96
10/10/24 11:49 10/10/24 11:39 10/10/24 11:49 10/10/24 11:39 10/10/24 11:49
10/09/24 10/10/24 10/11/24
06:59 06:59 06:59
Actual Weight 95.9 kg
10/10/24 05:51
10/10/24 05:51
PT 16.4 Sec (11.4-14.6) H 10/06/24 17:40
INR 1.29 10/06/24 17:40
APTT 66.6 Sec (23.4-35.0) H 10/05/24 13:00
Magnesium 1.9 mg/dl (1.6-2.3) 10/08/24 11:50
Triglycerides 114 mg/dl (10-149) 10/07/24 04:19
LDL Cholesterol, Calc 72 mg/dl 10/07/24 04:19
VLDL Cholesterol, Calc 22 mg/dl (0-30) 10/07/24 04:19
HDL Cholesterol 55 mg/dl 10/07/24 04:19
10/03/24
03:01
Yhw-Q-Ovwgkyflemh Pept 9140
Physical Exam
Constitutional: Comfortable
EENT: Anicteric and Moist mucous membranes
Cardiovascular: Rhythm & rate is regular, Pedal edema is absent, JVD present and Systolic murmur present
Respiratory: Respiratory effort normal
GI: Soft, Normal bowel sounds and Distention present
Neuro/Psych: Alert, Oriented and AO x 3
Data Reviewed
-
Date of Service: October 10, 2024
Medical Decision Making: Reviewed Test Results, Test Interpretation and Review of Case with other Provider
EKG: Tracing Personally Visualized and interpreted
Echo: Report Reviewed by me
Labs: Labs Reviewed by me
Old Records: Reviewed
--- NOTE | 2024-10-10 12:19 | W.PN.HOSP.TC ---
Today's Communication/Plan
-
Patient is medically cleared for Dc
Assessment / Plan
Assessment / Plan
Impression:
84 years old male history of CAD, hypertension, presented with non-STEMI.� Also new onset of A-fib.� On IV heparin drip, nitroglycerin, ACS protocol.
Seen by cardiology recommended cardiac cath.
Patient underwent cardiac cath through radial artery 10/05 shows:
1. Coronary artery disease as described with likely culprit stenosis of the large OM1.
2. Mildly elevated LV filling pressure and no aortic stenosis
Plan was either medical management versus repeat cardiac cath with bigger wire through femoral artery.
10/06
Patient underwent cardiac cath s/p stent as per cath report, it was complicated by acute perforation on final angiography, likely at the proximal stent edge, which appeared to self-seal rapidly without clinical consequent and was thus managed
conservatively.
Patient kept in the ICU overnight, repeat echocardiogram to monitor for effusion.
echo 10/07
LV size with moderately reduced systolic function.
LVEF is 30-35% by visual estimation. Anterolateral lateral inferolateral
hypokinesis.
Limited valvular interrogation.
No obvious significant pericardial effusion.
Compared to prior from October 06, 2024, no significant change
Got confused, urinalysis shows UTI, started on Rocephin
Acute urinary retention required urology consult and patient had cystoscopy with dilation of urethral stricture and complicated catheter placement over guidewire.
Mental status improved, patient was started on Rocephin for UTI.
Urine culture shows Providencia rettgeri, continue Rocephin and Dc on Ceftin.
Assessment/plan:
Acute NSTEMI:
Continue heparin drip and ACS protocol
On aspirin and beta-blockers
On nitroglycerin drip
Plavix load
Troponin peaked at 51.5
Plan for echocardiogram
Plan for cardiac cath on Saturday
Patient has very high risk of cardiac complications and increased risk morbidity/mortality
Cardiology consult appreciated
10/05
Echocardiogram showed:
Mildly dilated LV with moderately reduced systolic function.
EF is 35-40% by visual estimation. Anterolateral and lateral wall motion
abnormalities.
Stage I diastolic dysfunction suggestive of abnormal relaxation.
Normal right ventricular size and function.
Mild aortic regurgitation.
Insufficient TR for estimation of PASP.
Compared to prior from September 07, 2022, LVEF is now moderately reduced,
previously normal, and there are new wall motion abnormalities described above.
Discussed with at bedside.
For cardiac cath today
10/06
Cardiac cath 10/05 showed:
1. Coronary artery disease as described with likely culprit stenosis of the large OM1.
2. Mildly elevated LV filling pressure and no aortic stenosis
Plan for medical therapy versus repeat cardiac cath with femoral access.
Initially patient elected medical therapy but after discussion with his PCP he changed his mind to repeat cardiac cath.
Patient will go today for repeat cardiac cath
10/07
Patient underwent cardiac cath s/p stent as per cath report, it was complicated by acute perforation on final angiography, likely at the proximal stent edge, which appeared to self-seal rapidly without clinical consequent and was thus managed
conservatively.
Patient kept in the ICU overnight, repeat echocardiogram to monitor for effusion.
echo 10/07
LV size with moderately reduced systolic function.
LVEF is 30-35% by visual estimation. Anterolateral lateral inferolateral
hypokinesis.
Limited valvular interrogation.
No obvious significant pericardial effusion.
Compared to prior from October 06, 2024, no significant change
Discussed with cardiology
Start Eliquis tonight, stop aspirin and discharged on Eliquis and Plavix.
Repeat echocardiogram in a.m.
10/08
Repeat echo stable.
Paroxysmal atrial fibrillation, newly diagnosed:
Eliquis
On oral beta-hussain
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
compliance monitor
Acute metabolic encephalopathy.
Possible secondary to UTI.
Started Rocephin.
10/10
resolved
.
UTI.
Continue Rocephin.
Urine culture positive for gram-negative bacilli.
Pending final sensitivity.
10/10
Urine culture shows Providencia rettgeri, continue Rocephin and Dc on Ceftin.
Acute urinary retention
Urology consulted
s/p cystoscopy with dilation of urethral stricture and complicated catheter placement over guidewire.
Discharged with Maria.
Nonsustained V. tach:
compliance monitor
Keep electrolytes within decent levels K>4 and mag> 2
hypertension:
On multiple antihypertensives medication, episodes of hyperensions at noon
will monitor.
Hyperlipidemia:
Continue statin
History of carcinoma sphenoidal sinus:
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
Chronic lower extremity edema:
Likely lymphedema related
Obtain echocardiogram
CODE STATUS: Full code
DVT prophylaxis: Resume Eliquis tonight
Diet: Cardiac
Family communication: Discussed with at bedside
Total time spent on today's encounter was 65 minutes which included time spent in counseling the patient/family regarding diagnosis and treatment plan as listed above, goals of care, and symptom management. Case was discussed with nursing staff,
specialists, and care coordinators/case management. All labs and imaging personally reviewed by me. Remainder the time spent in detailed review of previous records, lab data, imaging, and other medical provider documentation.
Anticipated Discharge: Today
Subjective/Interval History
-
Date of Service: October 10, 2024
Patient seen and examined at bedside, sitting in the chair, more awake and oriented, patient denies any chest pain or shortness of breath, no abdominal pain, no nausea, no vomiting, no diarrhea or constipation.
Objective Data
-
Labs:
Laboratory Results
10/10/24
05:51
WBC 4.4 L
Hgb 10.4 L
Hct 30.3 L
Plt Count 143
Sodium 139
Potassium 4.5
Chloride 105
Carbon Dioxide 33 H
BUN 40 H
Creatinine 1.0
Glucose 102 H
Calcium 9.2
Vital Signs:
Vital Signs
Temp Pulse Resp BP Pulse Ox
97.6 F 53 16 93/50 96
10/10/24 11:49 10/10/24 11:39 10/10/24 11:49 10/10/24 11:39 10/10/24 11:49
I&O
10/09/24 10/10/24 10/11/24
06:59 06:59 06:59
Intake Total 810 / 810 200 / 200
Output Total 1700 / 1700 1150 / 1150 500 / 500
Balance -1700 / -1700 -340 / -340 -300 / -300
Physical Exam
-
General: No Apparent Distress and Comfortable
HEENT: Normocephalic, Atraumatic, Moist Mucous Membranes, No Ptosis, PERRLA and Nose Appears Normal
Respiratory: Clear to Auscultation and Non Labored Respirations
Cardiac: S1/S2 and Irregular Rhythm
Breast: Deferred by me
GI: Soft, Nontender, Nondistended and Normal Bowel Sounds
Genito-urinary: No Costovertebral Tender
Musculoskeletal: No Clubbing, No Cyanosis, Edema, Right Lower Extrem and Edema, Left Lower Extrem
Skin: Warm
Neuro: Awake, Alert and Oriented
Psych: Calm
Data Reviewed
-
Diagnostic Radiology: Image personally visualized and interpreted and Report Reviewed by me
CT Scan: Image personally visualized and interpreted and Report Reviewed by me
Ultrasound: Image personally visualized and interpreted and Report Reviewed by me
MRI: Image personally visualized and interpreted and Report Reviewed by me
Medical Tests (Nuc Med, Echo etc): Image personally visualized and interpreted and Report Reviewed by me
Labs: Labs Reviewed by me
Old Records: Reviewed
[2024-10-10] MEDS: ROCEPHIN 1000 MG IV (13:11)
[2024-10-10] MEDS: STERILE WATER FOR INJECTION 10 ML IV (13:11)
[2024-10-10] MEDS: MILK OF MAGNESIA 30 ML PO (14:34)
--- NOTE | 2024-10-10 16:33 | PTCARENOTE ---
VSS, pt denies complaint.
--- NOTE | 2024-10-10 20:00 | PTCARENOTE ---
Received pt from [facility]. pt resting comfortably in bed. pt is AAOx2, forgetful of time/date. pt denies pain. NSR on monitor. VSS. heart sounds audible, radial pulses palpable, DP pulses present with doppler, +2 pitting ZULEYMA. lungs clear, diminished
at b/l lateral bases, spo2 100% on RA. +BS x4 quadrants, abdomen soft, non tender, pt currently having diarrhea. pt is cleaned, new sheets and gown provided. surgical sites and dressings maintained. PIV maintained. call helm within reach. will
continue to monitor.
--- NOTE | 2024-10-10 23:30 | PTCARENOTE ---
Pt assessment unchanged. SR/SB on monitor. VSS. pt resting comfortably in bed. will continue to monitor.
[2024-10-11] VITALS (8 sets, daily range): BP systolic 84–134; BP diastolic 47–66; BMI 27.4
--- NOTE | 2024-10-11 04:00 | PTCARENOTE ---
pt assessment unchanged. pt stable overnight. will continue to monitor.
[2024-10-11] MEDS: TYLENOL 650 MG PO ×2 (04:11→16:59)
--- NOTE | 2024-10-11 08:28 | W.PN.CD ---
Today's Communication / Plan
-
- continue Plavix, apixaban
- Stable from cardiac stand point
- Outpatient ECHO in 3 months.
- Cardiology follow up for transition of care to outpatient and addition of further GDMT
Impression / Plan
-
I/P: 84M with CAD (PCI to pRCA, 1998), multidrug resistant HTN, & HLD, who presented with chest pain and NSTEMI. S/p PCI to large OM1/ramus 10/06 c/b contained perforation successfully medically managed.
Primary Machine Hoop Maker: Dr. Henson
CAD/NSTEMI now s/p PCI to OM1 c/b contained perforation
- perforation monitored in laborer starch factory and with serial TTE, no evidence of pericardial effusion of compromise of coronary blood flow
- serial TTE on floor without evidence of tamponade, stable RWMA
- continue Plavix, apixaban
- Stable from cardiac stand point
ICM
- EF newly reduced this admission, hopefully will recover post-PCI
- further titration of GDMT as outpatient appointment 11/04/24, maximize doses of HF GDMT over other non-GDMT antihypertensive (next can add davy and SGLT2i)
- Soft BP - further addition as outpatient.
- will repeat TTE as outpatient at 3 months
Urinary retention and stricture
- s/p stricture dilation 10/07
- reis - Urology is recommending discharging home with Reis and out patient follow up
- urology following
UTTI
- On rocephin
- Treat as per primary.
Atrial fibrillation, new, paroxysmal
- mostly in sinus celsa last 24 hours
- [id number] score at least 4 (age 84, vascular disease, hypertension)
- cont. apix and plavix
Lower extremity edema
- chronic, suspect lymphedema
HTN, multidrug resistant
- Continue home medical therapy and follow for goal SBP <130 mmHg
- currently well controlled
HLD
- LDL above goal (72), will increase crestor to 40 and add ezetimibe
- Goal LDL < 55
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
Physical Exam
Vital Signs/Labs
Vital Signs
Temp Pulse Resp BP Pulse Ox
97.8 F 52 12 114/62 97
10/11/24 04:00 10/11/24 04:00 10/11/24 04:00 10/11/24 04:00 10/11/24 04:00
10/10/24 10/11/24 10/12/24
06:59 06:59 06:59
Actual Weight 96.6 kg
10/10/24 05:51
10/10/24 05:51
PT 16.4 Sec (11.4-14.6) H 10/06/24 17:40
INR 1.29 10/06/24 17:40
APTT 66.6 Sec (23.4-35.0) H 10/05/24 13:00
Magnesium 1.9 mg/dl (1.6-2.3) 10/08/24 11:50
Triglycerides 114 mg/dl (10-149) 10/07/24 04:19
LDL Cholesterol, Calc 72 mg/dl 10/07/24 04:19
VLDL Cholesterol, Calc 22 mg/dl (0-30) 10/07/24 04:19
HDL Cholesterol 55 mg/dl 10/07/24 04:19
10/03/24
03:01
Srb-E-Chfmpvxvbot Pept 9140
Physical Exam
Constitutional: No acute distress and Comfortable
EENT: Anicteric and Moist mucous membranes
Cardiovascular: Rhythm & rate is regular and Pedal edema is absent
Respiratory: Respiratory effort normal and Lungs clear to auscul.
GI: Soft, Non tender and Normal bowel sounds
Neuro/Psych: Alert, Oriented and AO x 3
Data Reviewed
-
Date of Service: October 11, 2024
Medical Decision Making: Reviewed Test Results, Test Interpretation and Review of Case with other Provider
Labs: Labs Reviewed by me
Old Records: Reviewed
[2024-10-11] MEDS: ZETIA 10 MG PO (09:34)
[2024-10-11] MEDS: COZAAR 100 MG PO (09:34)
[2024-10-11] MEDS: PLAVIX 75 MG PO (09:34)
[2024-10-11] MEDS: ELIQUIS 5 MG PO ×2 (09:34→20:10)
[2024-10-11] MEDS: LOPRESSOR 50 MG PO (09:34)
[2024-10-11] MEDS: CRESTOR 40 MG PO (09:35)
[2024-10-11] MEDS: PROCARDIA XL (EXTENDED RELEASE) 60 MG PO (09:35)
[2024-10-11] MEDS: ROCEPHIN 1000 MG IV (12:05)
[2024-10-11] MEDS: STERILE WATER FOR INJECTION 10 ML IV (12:05)
--- NOTE | 2024-10-11 15:25 | W.PN.HOSP.TC ---
Today's Communication/Plan
-
Discharge once bed available.
Will need physical therapy reevaluation.
Assessment / Plan
Assessment / Plan
Impression:
84 years old male history of CAD, hypertension, presented with non-STEMI.� Also new onset of A-fib.� On IV heparin drip, nitroglycerin, ACS protocol.
Seen by cardiology recommended cardiac cath.
Patient underwent cardiac cath through radial artery 10/05 shows:
1. Coronary artery disease as described with likely culprit stenosis of the large OM1.
2. Mildly elevated LV filling pressure and no aortic stenosis
Plan was either medical management versus repeat cardiac cath with bigger wire through femoral artery.
10/06
Patient underwent cardiac cath s/p stent as per cath report, it was complicated by acute perforation on final angiography, likely at the proximal stent edge, which appeared to self-seal rapidly without clinical consequent and was thus managed
conservatively.
Patient kept in the ICU overnight, repeat echocardiogram to monitor for effusion.
echo 10/07
LV size with moderately reduced systolic function.
LVEF is 30-35% by visual estimation. Anterolateral lateral inferolateral
hypokinesis.
Limited valvular interrogation.
No obvious significant pericardial effusion.
Compared to prior from October 06, 2024, no significant change
Got confused, urinalysis shows UTI, started on Rocephin
Acute urinary retention required urology consult and patient had cystoscopy with dilation of urethral stricture and complicated catheter placement over guidewire.
Mental status improved, patient was started on Rocephin for UTI.
Urine culture shows Providencia rettgeri, continue Rocephin and Dc on Ceftin.
10/11
Will need physical therapy to Re-evaluate
Assessment/plan:
Acute NSTEMI:
Continue heparin drip and ACS protocol
On aspirin and beta-blockers
On nitroglycerin drip
Plavix load
Troponin peaked at 51.5
Plan for echocardiogram
Plan for cardiac cath on Saturday
Patient has very high risk of cardiac complications and increased risk morbidity/mortality
Cardiology consult appreciated
10/05
Echocardiogram showed:
Mildly dilated LV with moderately reduced systolic function.
EF is 35-40% by visual estimation. Anterolateral and lateral wall motion
abnormalities.
Stage I diastolic dysfunction suggestive of abnormal relaxation.
Normal right ventricular size and function.
Mild aortic regurgitation.
Insufficient TR for estimation of PASP.
Compared to prior from September 07, 2022, LVEF is now moderately reduced,
previously normal, and there are new wall motion abnormalities described above.
Discussed with at bedside.
For cardiac cath today
10/06
Cardiac cath 10/05 showed:
1. Coronary artery disease as described with likely culprit stenosis of the large OM1.
2. Mildly elevated LV filling pressure and no aortic stenosis
Plan for medical therapy versus repeat cardiac cath with femoral access.
Initially patient elected medical therapy but after discussion with his PCP he changed his mind to repeat cardiac cath.
Patient will go today for repeat cardiac cath
10/07
Patient underwent cardiac cath s/p stent as per cath report, it was complicated by acute perforation on final angiography, likely at the proximal stent edge, which appeared to self-seal rapidly without clinical consequent and was thus managed
conservatively.
Patient kept in the ICU overnight, repeat echocardiogram to monitor for effusion.
echo 10/07
LV size with moderately reduced systolic function.
LVEF is 30-35% by visual estimation. Anterolateral lateral inferolateral
hypokinesis.
Limited valvular interrogation.
No obvious significant pericardial effusion.
Compared to prior from October 06, 2024, no significant change
Discussed with cardiology
Start Eliquis tonight, stop aspirin and discharged on Eliquis and Plavix.
Repeat echocardiogram in a.m.
10/08
Repeat echo stable.
10/11
Cleared for discharge as per cardio
Paroxysmal atrial fibrillation, newly diagnosed:
Eliquis
On oral beta-hussain
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
Acute metabolic encephalopathy.
Possible secondary to UTI.
Started Rocephin.
10/10
resolved
.
UTI.
Continue Rocephin.
Urine culture positive for gram-negative bacilli.
Pending final sensitivity.
10/10
Urine culture shows Providencia rettgeri, continue Rocephin and Dc on Ceftin.
Acute urinary retention
Urology consulted
s/p cystoscopy with dilation of urethral stricture and complicated catheter placement over guidewire.
Discharged with Maria.
Nonsustained V. tach:
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
Keep electrolytes within decent levels K>4 and mag> 2
hypertension:
On multiple antihypertensives medication, episodes of hyperensions at noon
will monitor.
Hyperlipidemia:
Continue statin
History of carcinoma sphenoidal sinus:
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
Chronic lower extremity edema:
Likely lymphedema related
Obtain echocardiogram
CODE STATUS: Full code
DVT prophylaxis: Resume Eliquis tonight
Diet: Cardiac
Family communication: Discussed with at bedside
Disposition: Medically clear for DC
Total time spent on today's encounter was 65 minutes which included time spent in counseling the patient/family regarding diagnosis and treatment plan as listed above, goals of care, and symptom management. Case was discussed with nursing staff,
specialists, and care coordinators/case management. All labs and imaging personally reviewed by me. Remainder the time spent in detailed review of previous records, lab data, imaging, and other medical provider documentation.
Anticipated Discharge: Today
Subjective/Interval History
-
Date of Service: October 11, 2024
Patient seen and examined at bedside, sitting in a chair, more awake and cooperative.
Denies any chest pain or shortness of breath, no abdominal pain, no nausea, no vomiting, no diarrhea or constipation.
Objective Data
-
Vital Signs:
Vital Signs
Temp Pulse Resp BP Pulse Ox
97.6 F 51 16 84/65 98
10/11/24 12:21 10/11/24 12:14 10/11/24 12:21 10/11/24 12:14 10/11/24 12:21
I&O
10/10/24 10/11/24 10/12/24
06:59 06:59 06:59
Intake Total 810 / 810 300 / 300 100 / 100
Output Total 1150 / 1150 1350 / 1350 300 / 300
Balance -340 / -340 -1050 / -1050 -200 / -200
Physical Exam
-
General: No Apparent Distress and Comfortable
HEENT: Normocephalic, Atraumatic, Moist Mucous Membranes, No Ptosis, PERRLA and Nose Appears Normal
Respiratory: Clear to Auscultation and Non Labored Respirations
Cardiac: S1/S2 and Irregular Rhythm
Breast: Deferred by me
GI: Soft, Nontender, Nondistended and Normal Bowel Sounds
Genito-urinary: No Costovertebral Tender
Musculoskeletal: No Clubbing, No Cyanosis, Edema, Right Lower Extrem and Edema, Left Lower Extrem
Skin: Warm
Neuro: Awake, Alert and Oriented
Psych: Calm
Data Reviewed
-
Diagnostic Radiology: Image personally visualized and interpreted and Report Reviewed by me
CT Scan: Image personally visualized and interpreted and Report Reviewed by me
Ultrasound: Image personally visualized and interpreted and Report Reviewed by me
MRI: Image personally visualized and interpreted and Report Reviewed by me
Medical Tests (Nuc Med, Echo etc): Image personally visualized and interpreted and Report Reviewed by me
Labs: Labs Reviewed by me
Old Records: Reviewed
[2024-10-11] MEDS: LOPRESSOR PO (20:11)
--- NOTE | 2024-10-11 21:00 | PTCARENOTE ---
Assumed care of pt from dayshift RN. Walking rounds completed. Pt is oriented to person / place. Pt disoriented to day of the week, but can be re-oriented. Pt is sinus celsa on the tele monitor. HR 50s. BP stable. B/L radial pulses palpable. B/L DP
pulses present via doppler. B/L +3 LE edema present. Pt 99% on RA. Lung sounds audible throughout. Deep breathing encouraged. Abdomen soft/nontender. +BS. Maria catheter in place and draining yellow urine. Right arm ecchymotic and slightly swollen
from previous infiltrate site. Right wrist cath site intact. Right groin sheath site intact and soft. Left wrist PIV intact. Pt denies pain at this time. Lopressor held d/t low HR - see JUL. See worklist for full nursing assessment and
interventions. Pt resting in bed at this time - bed alarm on. Call helm within reach.
[2024-10-12] VITALS (21 sets, daily range): BP systolic 62–167; BP diastolic 49–110; PULSE 54; O2SAT 98; BMI 27.7
--- NOTE | 2024-10-12 00:13 | PTCARENOTE ---
No acute change in assessment. Pt is sinus celsa on the tele monitor. HR high 40s- low 50s. BP stable. Pt is 97% on RA. Afebrile. Maria catheter intact and draining yellow urine. Pt resting in bed at this time - bed alarm on. No c/o pain at this
time. Call helm within reach.
--- NOTE | 2024-10-12 03:10 | PTCARENOTE ---
No change in assessment. Pt is sinus celsa on the tele monitor. HR 50s. Sinus rhythm while awake in the 60s. BP stable. Pt is 100% on RA. Maria catheter intact and draining yellow urine. Labs drawn and sent. Pt repositioned in bed. Call helm within
reach. Pt ringing appropriately.
[2024-10-12 03:55] LABS: Hematocrit 32.6 % (39.0-52.0); Mean Corp Hgb Conc. 33.7 g/dL (33.0-37.0); Mean Corpuscular Hgb 31.5 pg (27.0-31.0); Mean Corpuscular Volume 93.4 fL (80.0-94.0); Mean Platelet Volume 10.5 fL (7.4-10.4); Platelet Count 180 10^3/uL (130-400); Red Blood Cell Count 3.49 10^6/uL (4.70-6.10); Red Cell Dist. Width 13.2 % (11.5-14.5); White Blood Cell Count 3.5 10^3/uL (4.8-10.8)
[2024-10-12 04:08] LABS: Blood Urea Nitrogen 44 mg/dl (9-20); Calcium 9.3 mg/dl (8.4-10.2); Carbon Dioxide 31 mmol/L (22-30); Chloride 104 mmol/L (98-107); Estimated Creatinine Clearance 65 ml/min; Glucose 110 mg/dl (70-99); Potassium 4.4 mmol/L (3.5-5.1); Sodium 139 mmol/L (135-145); eGFR > 60.00
[2024-10-12] MEDS: CRESTOR 40 MG PO (08:41)
[2024-10-12] MEDS: PROCARDIA XL (EXTENDED RELEASE) 60 MG PO (08:41)
[2024-10-12] MEDS: ELIQUIS 5 MG PO ×2 (08:41→20:51)
[2024-10-12] MEDS: ZETIA 10 MG PO (08:41)
[2024-10-12] MEDS: PLAVIX 75 MG PO (08:41)
[2024-10-12] MEDS: LOPRESSOR 50 MG PO ×2 (08:41→20:51)
--- NOTE | 2024-10-12 09:08 | W.PN.CD ---
Today's Communication / Plan
-
stop hydral, start aldactone, if needs more BP room stop/reduce nifedipine preferentially
medically stable pending discharge
Impression / Plan
-
I/P: 84M with [facility] multidrug resistant HTN, & HLD, who presented with chest pain and NSTEMI. S/p PCI to large OM1/ramus 10/06 c/b contained perforation successfully medically managed.
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
CAD/NSTEMI now s/p PCI to OM1 c/b contained perforation
- perforation monitored in metallurgy laboratory technician and with serial TTE, no evidence of pericardial effusion of compromise of coronary blood flow
- serial TTE on floor without evidence of tamponade, stable RWMA
- continue Plavix, apixaban
- Stable from cardiac stand point
ICM
- EF newly reduced this admission, hopefully will recover post-PCI
- will start aldactone on top of ARB/BB to optimize GDMT; may consider SGLT2i as outpatient but concern with recent UTI; given episodic low blood pressures, should stop non-GDMT agents (nifedipine) first if need more blood pressure room for GDMT
titration
- will repeat TTE as outpatient at 3 months
Urinary retention and stricture
- s/p stricture dilation 10/07
- reis - Urology is recommending discharging home with Reis and out patient follow up
- urology following
UTT
- On rocephin
- Treat as per primary.
Atrial fibrillation, new, paroxysmal
- mostly in sinus celsa last 24 hours
- [id number] score at least 4 (age 84, vascular disease, hypertension)
- cont. apix and plavix
Lower extremity edema
- chronic, suspect lymphedema
HTN, multidrug resistant
- Continue home medical therapy and follow for goal SBP <130 mmHg
- currently well controlled
HLD
- LDL above goal (72), will increase crestor to 40 and add ezetimibe
- Goal LDL < 55
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
Physical Exam
Vital Signs/Labs
Vital Signs
Temp Pulse Resp BP Pulse Ox
36.4 C 62 20 120/65 100
10/12/24 08:00 10/12/24 08:41 10/12/24 08:00 10/12/24 08:41 10/12/24 02:55
10/11/24 10/12/24 10/13/24
06:59 06:59 06:59
Actual Weight 96.6 kg 97.8 kg
10/12/24 02:51
10/12/24 02:51
PT 16.4 Sec (11.4-14.6) H 10/06/24 17:40
INR 1.29 10/06/24 17:40
APTT 66.6 Sec (23.4-35.0) H 10/05/24 13:00
Magnesium 1.9 mg/dl (1.6-2.3) 10/08/24 11:50
Triglycerides 114 mg/dl (10-149) 10/07/24 04:19
LDL Cholesterol, Calc 72 mg/dl 10/07/24 04:19
VLDL Cholesterol, Calc 22 mg/dl (0-30) 10/07/24 04:19
HDL Cholesterol 55 mg/dl 10/07/24 04:19
10/03/24
03:01
[id number] Pept 9140
Physical Exam
Constitutional: No acute distress
Cardiovascular: Rhythm & rate is regular
Respiratory: Respiratory effort normal
Neuro/Psych: AO x 3
Data Reviewed
-
Date of Service: October 12, 2024
Medical Decision Making: Reviewed Test Results
Medical Tests (PFT, Pathology etc): Image Personally Visualized and interpreted
Labs: Labs Reviewed by me
--- NOTE | 2024-10-12 09:23 | W.PN.HOSP.TC ---
Today's Communication/Plan
-
IV fluids. Holding antihypertensives. Cardiology reeval
Assessment / Plan
Assessment / Plan
Physical exam:
General: Acute on chronically ill
HEENT: Normocephalic, Atraumatic and Moist Mucous Membranes
Respiratory: Clear to Auscultation; Negative Wheezes, Rales or Rhonchi
Cardiac: Regular Rhythm and S1/S2
GI: Soft, Nontender and Nondistended
Musculoskeletal: No Clubbing, No Cyanosis and No Edema
Neuro: Awake, Alert and Oriented, no neurological deficit
Psych: Calm
A/P:
Impression:
84 years old male history of CAD, hypertension, presented with non-STEMI.� Also new onset of A-fib.� On IV heparin drip, nitroglycerin, ACS protocol.
Seen by cardiology recommended cardiac cath.
Patient underwent cardiac cath through radial artery 10/05 shows:
1. Coronary artery disease as described with likely culprit stenosis of the large OM1.
2. Mildly elevated LV filling pressure and no aortic stenosis
Plan was either medical management versus repeat cardiac cath with bigger wire through femoral artery.
10/06
Patient underwent cardiac cath s/p stent as per cath report, it was complicated by acute perforation on final angiography, likely at the proximal stent edge, which appeared to self-seal rapidly without clinical consequent and was thus managed
conservatively.
Patient kept in the ICU overnight, repeat echocardiogram to monitor for effusion.
echo 10/07
LV size with moderately reduced systolic function.
LVEF is 30-35% by visual estimation. Anterolateral lateral inferolateral
hypokinesis.
Limited valvular interrogation.
No obvious significant pericardial effusion.
Compared to prior from October 06, 2024, no significant change
Got confused, urinalysis shows UTI, started on Rocephin
Acute urinary retention required urology consult and patient had cystoscopy with dilation of urethral stricture and complicated catheter placement over guidewire.
Mental status improved, patient was started on Rocephin for UTI.
Urine culture shows Providencia rettgeri, continue Rocephin and Dc on Ceftin.
10/11
Will need physical therapy to Re-evaluate
10/12
Patient hypotensive today
Patient had adjustment of medications today and dropped blood pressure. Cardiology held his cardiac medications and gave IV fluid.
Discussed with at bedside
Assessment/plan:
Acute NSTEMI:
Continue heparin drip and ACS protocol
On aspirin and beta-blockers
On nitroglycerin drip
Plavix load
Troponin peaked at 51.5
Plan for echocardiogram
Plan for cardiac cath on Saturday
Patient has very high risk of cardiac complications and increased risk morbidity/mortality
Cardiology consult appreciated
10/05
Echocardiogram showed:
Mildly dilated LV with moderately reduced systolic function.
EF is 35-40% by visual estimation. Anterolateral and lateral wall motion
abnormalities.
Stage I diastolic dysfunction suggestive of abnormal relaxation.
Normal right ventricular size and function.
Mild aortic regurgitation.
Insufficient TR for estimation of PASP.
Compared to prior from September 07, 2022, LVEF is now moderately reduced,
previously normal, and there are new wall motion abnormalities described above.
Discussed with at bedside.
For cardiac cath today
10/06
Cardiac cath 10/05 showed:
1. Coronary artery disease as described with likely culprit stenosis of the large OM1.
2. Mildly elevated LV filling pressure and no aortic stenosis
Plan for medical therapy versus repeat cardiac cath with femoral access.
Initially patient elected medical therapy but after discussion with his PCP he changed his mind to repeat cardiac cath.
Patient will go today for repeat cardiac cath
10/07
Patient underwent cardiac cath s/p stent as per cath report, it was complicated by acute perforation on final angiography, likely at the proximal stent edge, which appeared to self-seal rapidly without clinical consequent and was thus managed
conservatively.
Patient kept in the ICU overnight, repeat echocardiogram to monitor for effusion.
echo 10/07
LV size with moderately reduced systolic function.
LVEF is 30-35% by visual estimation. Anterolateral lateral inferolateral
hypokinesis.
Limited valvular interrogation.
No obvious significant pericardial effusion.
Compared to prior from October 06, 2024, no significant change
Discussed with cardiology
Start Eliquis tonight, stop aspirin and discharged on Eliquis and Plavix.
Repeat echocardiogram in a.m.
10/08
Repeat echo stable.
10/11
Cleared for discharge as per cardio
10/12
Patient hypotensive today
Patient had adjustment of medications today and dropped blood pressure. Cardiology held his cardiac medications and gave IV fluid.
Discussed with at bedside
Discussed with cardiology and initially was going to be cleared but not yet until blood pressure stable
Paroxysmal atrial fibrillation, newly diagnosed:
Eliquis
On oral beta-hussain
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
electronic device monitor
Acute metabolic encephalopathy.
Possible secondary to UTI.
Started Rocephin.
10/10
resolved
.
UTI.
Continue Rocephin.
Urine culture positive for gram-negative bacilli.
Pending final sensitivity.
10/10
Urine culture shows Providencia rettgeri, continue Rocephin and Dc on Ceftin.
Acute urinary retention
Urology consulted
s/p cystoscopy with dilation of urethral stricture and complicated catheter placement over guidewire.
Discharged with Maria.
Nonsustained V. tach:
electronic device monitor
Keep electrolytes within decent levels K>4 and mag> 2
hypertension:
On multiple antihypertensives medication, episodes of hyperensions at noon
will monitor.
Hyperlipidemia:
Continue statin
History of carcinoma sphenoidal sinus:
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
Chronic lower extremity edema:
Likely lymphedema related
Obtain echocardiogram
CODE STATUS: Full code
DVT prophylaxis: Resumed Eliquis
Diet: Cardiac
Family communication: Discussed with at bedside
Disposition: Medically clear for DC hopefully over the next 24 hrs
Total time spent on today's encounter was 65 minutes which included time spent in counseling the patient/family regarding diagnosis and treatment plan as listed above, goals of care, and symptom management. Case was discussed with nursing staff,
specialists, and care coordinators/case management. All labs and imaging personally reviewed by me. Remainder the time spent in detailed review of previous records, lab data, imaging, and other medical provider documentation.
Anticipated Discharge: 24 - 48 hours
Subjective/Interval History
-
Date of Service: October 12, 2024
Patient denies chest pain or shortness of breath today. Patient had adjustment of medications today and dropped blood pressure. Cardiology held his cardiac medications and gave IV fluid.
Objective Data
-
Labs:
Laboratory Results
10/12/24
02:51
WBC 3.5 L
Hgb 11.0 L
Hct 32.6 L
Plt Count 180 D
Sodium 139
Potassium 4.4
Chloride 104
Carbon Dioxide 31 H
BUN 44 H
Creatinine 1.0
Glucose 110 H
Calcium 9.3
Vital Signs:
Vital Signs
Temp Pulse Resp BP Pulse Ox
97.6 F 62 20 120/65 98
10/12/24 08:00 10/12/24 09:00 10/12/24 08:00 10/12/24 08:41 10/12/24 08:36
I&O
10/11/24 10/12/24 10/13/24
06:59 06:59 06:59
Intake Total 300 / 300 200 / 200
Output Total 1350 / 1350 1800 / 1800 525 / 525
Balance -1050 / -1050 -1600 / -1600 -525 / -525
[2024-10-12] MEDS: COZAAR PO (10:59)
[2024-10-12] MEDS: NSS 250 IV (11:43)
[2024-10-12] MEDS: STERILE WATER FOR INJECTION 10 ML IV (12:27)
[2024-10-12] MEDS: ROCEPHIN 1000 MG IV (12:27)
--- NOTE | 2024-10-12 12:53 | CM ---
spoke to pt in room, working on placement for rehab. awaiting bed availability. calls placed to [facility], [facility] and [facility].
--- NOTE | 2024-10-12 19:18 | PTCARENOTE ---
~[id number]: handoff report received from morris RN. Pt Aox4, forgetful at this time. SB 40-50s on tele with frequent PACs and PVCs. SBP 90s-120s. Pt denies pain at this time. Maria in place draining clear yellow urine. Maria care completed. I/Os
charted. R arm bruised with trace edema. R groin and R wrist 4x4 dressing CDI. Foams on b/l elbows. +3 pitting edema on b/l feet and BLE +2 pitting edema. All needs met at this time, call helm within reach.
~[id number]: PT working with patient. BP 97/67 prior to standing. PT stood patient next to bedside and per PT his responsiveness decreased and patient felt like he was going to pass out, patient laid down in bed. Patient stoof back up with Ax2 and
walker to get OOB to chair, standing BP obtained, 62/49. Dr. Henson made aware- Hold parameters added to all BP meds to hold for SBP <90, aldactone d/c'd, nifedipine d/c'd and 250cc fluids ordered.
~[id number]: Repeat BP after IVF done, BP 93/51, pressure rechecked 89/54, asymptomatic. Dr. Henson made aware, no new orders at this time. IV Rocephin given per order.
~[id number]: Patient resting in room. Phone call from patient's [id number], Candace, (per patinet 'ok' to discuss health information). Gave Candace update and she requested to speak with CM to figure out exactly what the plan was after d/c, TT
Tammy with request to call Candace. VSS at this time. Oriented but forgetful, denies pain at this time. All needs met at this time, call helm within reach. Handoff report given to morris RN.
--- NOTE | 2024-10-12 22:00 | PTCARENOTE ---
Patient received at change of shift resting in the bed. Indwelling urinary catheter draining lona urine. Right wrist and right groin cath sites with gauze and tegaderm C/D/I, radial and pedal pulses palpable. Patient denies pain or discomfort.
Sinus rhythm on telemetry. Oxygen saturation 97% on room air. Bed alarm armed as patient is forgetful. Call helm within reach. Bed in lowest position, wheels locked. Care ongoing.
[2024-10-13 03:13] VITALS: BP 127/80
[2024-10-13 03:22] VITALS: BMI 26.2
[2024-10-13 07:49] VITALS: BP 143/87
[2024-10-13 09:44] LABS: % Basophils 0.6 % (0-2); % Eosinophils 5.1 % (0-6); % Immature Granulocytes 0.6 % (0-0.5); % Lymphocytes 16.1 % (20.5-51.1); % Monocytes 15.5 % (1.7-9.3); % Neutrophils 62.1 % (42.2-75.2); Absolute Eosinophils 0.2 10^3/uL (0-0.7); Absolute Lymphocytes 0.5 10^3/uL (1.2-3.4); Absolute Monocytes 0.5 10^3/uL (0.1-0.6); Absolute Neutrophils 2.1 10^3/uL (1.4-6.5); Hematocrit 33.2 % (39.0-52.0); Hemoglobin 11.4 g/dL (13.0-18.0); Mean Corp Hgb Conc. 34.3 g/dL (33.0-37.0); Mean Corpuscular Hgb 31.8 pg (27.0-31.0); Mean Corpuscular Volume 92.5 fL (80.0-94.0); Nucleated Red Blood Cells % 0 % (-); Platelet Count 199 10^3/uL (130-400); Red Blood Cell Count 3.59 10^6/uL (4.70-6.10); Red Cell Dist. Width 12.9 % (11.5-14.5); White Blood Cell Count 3.4 10^3/uL (4.8-10.8)
--- NOTE | 2024-10-13 09:45 | W.PN.HOSP.TC ---
Today's Communication/Plan
-
Discharge planning today
Assessment / Plan
Assessment / Plan
Physical exam:
General: Acute on chronically ill
HEENT: Normocephalic, Atraumatic and Moist Mucous Membranes
Respiratory: Clear to Auscultation; Negative Wheezes, Rales or Rhonchi
Cardiac: Regular Rhythm and S1/S2
GI: Soft, Nontender and Nondistended
Musculoskeletal: No Clubbing, No Cyanosis and No Edema
Neuro: Awake, Alert and Oriented, no neurological deficit
Psych: Calm
A/P:
Impression:
84 years old male history of CAD, hypertension, presented with non-STEMI.� Also new onset of A-fib.� On IV heparin drip, nitroglycerin, ACS protocol.
Seen by cardiology recommended cardiac cath.
Patient underwent cardiac cath through radial artery 10/05 shows:
1. Coronary artery disease as described with likely culprit stenosis of the large OM1.
2. Mildly elevated LV filling pressure and no aortic stenosis
Plan was either medical management versus repeat cardiac cath with bigger wire through femoral artery.
10/06
Patient underwent cardiac cath s/p stent as per cath report, it was complicated by acute perforation on final angiography, likely at the proximal stent edge, which appeared to self-seal rapidly without clinical consequent and was thus managed
conservatively.
Patient kept in the ICU overnight, repeat echocardiogram to monitor for effusion.
echo 10/07
LV size with moderately reduced systolic function.
LVEF is 30-35% by visual estimation. Anterolateral lateral inferolateral
hypokinesis.
Limited valvular interrogation.
No obvious significant pericardial effusion.
Compared to prior from October 06, 2024, no significant change
Got confused, urinalysis shows UTI, started on Rocephin
Acute urinary retention required urology consult and patient had cystoscopy with dilation of urethral stricture and complicated catheter placement over guidewire.
Mental status improved, patient was started on Rocephin for UTI.
Urine culture shows Providencia rettgeri, continue Rocephin and Dc on Ceftin.
10/11
Will need physical therapy to Re-evaluate
10/12
Patient hypotensive today
Patient had adjustment of medications today and dropped blood pressure. Cardiology held his cardiac medications and gave IV fluid.
Discussed with at bedside
10/13
Given gentle hydration yesterday and blood pressure medications held. Today blood pressure much improved.
Cardiology recommends to continue holding those blood pressure medications and reevaluate as outpatient. For now-see discharge medications list. Cardiology cleared him for discharge.
Plan to discharge to SNF today
Assessment/plan:
Acute NSTEMI:
Continue heparin drip and ACS protocol
On aspirin and beta-blockers
On nitroglycerin drip
Plavix load
Troponin peaked at 51.5
Plan for echocardiogram
Plan for cardiac cath on Saturday
Patient has very high risk of cardiac complications and increased risk morbidity/mortality
Cardiology consult appreciated
10/05
Echocardiogram showed:
Mildly dilated LV with moderately reduced systolic function.
EF is 35-40% by visual estimation. Anterolateral and lateral wall motion
abnormalities.
Stage I diastolic dysfunction suggestive of abnormal relaxation.
Normal right ventricular size and function.
Mild aortic regurgitation.
Insufficient TR for estimation of PASP.
Compared to prior from September 07, 2022, LVEF is now moderately reduced,
previously normal, and there are new wall motion abnormalities described above.
Discussed with at bedside.
For cardiac cath today
10/06
Cardiac cath 10/05 showed:
1. Coronary artery disease as described with likely culprit stenosis of the large OM1.
2. Mildly elevated LV filling pressure and no aortic stenosis
Plan for medical therapy versus repeat cardiac cath with femoral access.
Initially patient elected medical therapy but after discussion with his PCP he changed his mind to repeat cardiac cath.
Patient will go today for repeat cardiac cath
10/07
Patient underwent cardiac cath s/p stent as per cath report, it was complicated by acute perforation on final angiography, likely at the proximal stent edge, which appeared to self-seal rapidly without clinical consequent and was thus managed
conservatively.
Patient kept in the ICU overnight, repeat echocardiogram to monitor for effusion.
echo 10/07
LV size with moderately reduced systolic function.
LVEF is 30-35% by visual estimation. Anterolateral lateral inferolateral
hypokinesis.
Limited valvular interrogation.
No obvious significant pericardial effusion.
Compared to prior from October 06, 2024, no significant change
Discussed with cardiology
Start Eliquis tonight, stop aspirin and discharged on Eliquis and Plavix.
Repeat echocardiogram in a.m.
10/08
Repeat echo stable.
10/11
Cleared for discharge as per cardio
10/12
Patient hypotensive today
Patient had adjustment of medications today and dropped blood pressure. Cardiology held his cardiac medications and gave IV fluid.
Discussed with at bedside
Discussed with cardiology and initially was going to be cleared but not yet until blood pressure stable
10/13
Given gentle hydration yesterday and blood pressure medications held. Today blood pressure much improved.
Cardiology recommends to continue holding those blood pressure medications and reevaluate as outpatient. For now-see discharge medications list. Cardiology cleared him for discharge.
Plan to discharge to SNF today
Paroxysmal atrial fibrillation, newly diagnosed:
Eliquis
On oral beta-hussain
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
hr consultant
Acute metabolic encephalopathy.
Possible secondary to UTI.
Started Rocephin.
10/10
resolved
.
UTI.
Continue Rocephin.
Urine culture positive for gram-negative bacilli.
Pending final sensitivity.
10/10
Urine culture shows Providencia rettgeri, continue Rocephin and Dc on Ceftin.
10/13
Completed 5 days course of IV ceftriaxone. No need for more antibiotics.
Acute urinary retention
Urology consulted
s/p cystoscopy with dilation of urethral stricture and complicated catheter placement over guidewire.
Discharged with Maria.
Nonsustained V. tach:
hr consultant
Keep electrolytes within decent levels K>4 and mag> 2
hypertension:
On multiple antihypertensives medication, episodes of hypertensions at noon
will monitor.
Hyperlipidemia:
Continue statin
History of carcinoma sphenoidal sinus:
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
Chronic lower extremity edema:
Likely lymphedema related
Obtained echocardiogram
CODE STATUS: Full code
DVT prophylaxis: Resumed Eliquis
Diet: Cardiac
Family communication: Discussed with at bedside yesterday
Disposition: Medically clear for DC
Anticipated Discharge: Today
Subjective/Interval History
-
Date of Service: October 13, 2024
Patient blood pressure improved. No new complaints.
Objective Data
-
Labs:
Laboratory Results
10/13/24
09:35
WBC 3.4 L
Hgb 11.4 L
Hct 33.2 L
Plt Count 199
Sodium Pending
Potassium Pending
Chloride Pending
Carbon Dioxide Pending
BUN Pending
Creatinine Pending
Glucose Pending
Calcium Pending
Vital Signs:
Vital Signs
Temp Pulse Resp BP Pulse Ox
97.5 F 61 18 127/80 100
10/13/24 07:52 10/13/24 07:52 10/13/24 07:52 10/13/24 03:13 10/13/24 07:52
I&O
10/12/24 10/13/24 10/14/24
06:59 06:59 06:59
Intake Total 200 / 200
Output Total 1800 / 1800 1924 / 1924 650 / 650
Balance -1600 / -1600 -1924 / -1924 -650 / -650
--- NOTE | 2024-10-13 09:45 | W.DCSUMMARY ---
Discharge Summary
Discharge Data
Date of Admission: 10/02/24
Date of Discharge: 10/13/24
Total time spent discharging patient (in min): 39
-
Pending Results: No
Hospital Course
Patient 84 years old male history of CAD, resistant hypertension, hyperlipidemia, carcinoma sphenoid sinus status post radiation and chemotherapy in the past, came into the hospital with the presentation of acute non-STEMI and new onset of atrial
fibrillation. Cardiology consulted. Initial echocardiogram showed EF of 35 to 40% and WMA. He had a history of cardiac cath on 10/05 that showed obstructive CAD on OM1. Patient was recommended to have femoral approach on a second cardiac cath on
10/06 and he had PCI with TEAGAN to the OM1 but also complicated by acute perforation of the proximal stent and that appeared to self sealed rapidly without clinical consequences therefore it was managed conservatively.
Course complicated with urinary retention. Urology consulted. Urology noticed difficult Maria placement and also recommended discharged with catheter and follow-up outpatient with urology.
During his hospital stay his cardiac medications were adjusted several times and ultimately due to hypotension. He was placed on a regimen that he tolerated well. He also tolerated anticoagulation well. He had a second follow-up echocardiogram
during this hospital stay that remained relatively stable. PT OT recommending skilled rehab. Cardiology has cleared him for discharge today. Otherwise, patient hemodynamically stable and he will be discharged in relatively stable condition today.
Discharge duration: 39 minutes
Discharge Plan
-
Patient Disposition: Half-Way/SNF
Discharge Diagnosis/Procedures: Non-ST Elevation Myocardial Infarction, status post angioplasty and stent x2 to Obtuse Marginal artery and contained perforation. Ischemic cardiomyopathy. Urinary tract infection. New paroxysmal atrial fibrillation.
Hypertension. Hypotension.
Diet: Low Cholesterol
Activity: As tolerated
Blood Work: Please PCP to order CBC, BMP within 1 week
Other Services: Cardiac Rehab
Stand Alone Forms: DC Instructions- Cath/EP Lab
Referrals:
Tyler Ryan MD [Primary Care Provider] - in less than 1 week
Nigel Price MD [Active] - in two to four weeks (Urinary retention evaluation)
Heidi Pretty CRNP [Specified Professional Personl] - 11/04/24 1:40 pm (Cardiology followup appointment)
Prescriptions:
New
clopidogrel 75 mg Tablet
75 mg PO DAILY Qty: 30 0RF
metoprolol tartrate 50 mg Tablet
50 mg PO BID Qty: 60 0RF
nitroglycerin 0.4 mg Tablet, Sublingual
0.4 mg sublingual [id number] PRN (Reason: Chest pain, Jaw pain) Qty: 0 0RF
ezetimibe 10 mg Tablet
10 mg PO DAILY Qty: 30 0RF
rosuvastatin 40 mg Tablet
40 mg PO DAILY 30 Days Qty: 30 0RF
Eliquis 5 mg Tablet
5 mg PO BID Qty: 60 0RF
Continued
sennosides [senna] 8.6 mg Tablet
8.6 mg PO HSPRN PRN (Reason: constipation)
calcium carbonate-vitamin D3 [Calcium 600 + D(3)] 600 mg-10 mcg (400 unit) Tablet
1 tab PO DAILY
Discontinued
hydralazine 25 mg Tablet
25 mg PO BID
potassium chloride 10 mEq Tablet Extended Release
10 meq PO Q48H
Patient Comments:
spouse stated he might be taking this bid
aspirin 81 mg Tablet,Delayed Release (Dr/Ec)
81 mg PO DAILY
nifedipine [Nifedical XL] 60 mg Tablet Extended Release 24hr
60 mg PO DAILY
metoprolol tartrate [Lopressor] 50 mg Tablet
25 mg PO BID
triamterene-hydrochlorothiazid 37.5-25 mg Tablet
1 tab PO DAILY
losartan 100 mg Tablet
100 mg PO DAILY
rosuvastatin [Crestor] 20 mg Tablet
20 mg PO DAILY
Discharge Orders:
Discharge Patient (As Directed); Ordered 10/13/24
Ordered By: Dioni Polk
Care Plan Goals
Care Plan Goals:
Problem: Readiness for enhanced knowledge related to diagnosis and treatment plan
Goal: Understand your diagnosis and treatment plan needs, including medications if applicable.
Instructions: Know your diagnosis, underlying causes and treatment plan options, including medications if applicable. Consult with your health care team to learn about your diagnosis and treatment plan, including medications if applicable.
Discharge Date and Time
Discharge Date/Time: 10/13/24 16:52
Print Language: NIGERIAN
[2024-10-13 10:02] LABS: Blood Urea Nitrogen 32 mg/dl (9-20); Calcium 9.3 mg/dl (8.4-10.2); Carbon Dioxide 30 mmol/L (22-30); Chloride 107 mmol/L (98-107); Estimated Creatinine Clearance 81 ml/min; Glucose 98 mg/dl (70-99); Sodium 140 mmol/L (135-145); eGFR > 60.00
--- NOTE | 2024-10-13 10:10 | W.PN.CD ---
Today's Communication / Plan
-
BP improved
check labs given hypotension yesterday (ordered)
stable for discharge from cardiac standpoint
Impression / Plan
-
I/P: 84M with [facility] multidrug resistant HTN, & HLD, who presented with chest pain and NSTEMI. S/p PCI to large OM1/ramus 10/06 c/b contained perforation successfully medically managed.
Primary Recreation Facility Manager: Dr. Henson
CAD/NSTEMI now s/p PCI to OM1 c/b contained perforation
- perforation monitored in medical lab assistant and with serial TTE, no evidence of pericardial effusion of compromise of coronary blood flow
- serial TTE on floor without evidence of tamponade, stable RWMA
- continue Plavix, apixaban
- Stable from cardiac stand point
Hypotension
- hypotensive yesterday while standing to work with PT, felt dizzy
- chemistry suggestive of contraction / exam suggests patient may be dry
- given 500 cc fluids, nifedipine stopped, aldactone not given
- pressures better yesterday afternoon and overnight, will not add further GDMT at this time
ICM
- EF newly reduced this admission, hopefully will recover post-PCI
- further GDMT titration as outpatient given episodic hypotension
- will repeat TTE as outpatient at 3 months
Urinary retention and stricture
- s/p stricture dilation 10/07
- reis - Urology is recommending discharging home with Reis and out patient follow up
- urology following
UTT
- On rocephin
- Treat as per primary.
Atrial fibrillation, new, paroxysmal
- mostly in sinus celsa last 24 hours
- [id number] score at least 4 (age 84, vascular disease, hypertension)
- cont. apix and plavix
Lower extremity edema
- chronic, suspect lymphedema
HTN, multidrug resistant
- hypotensive here, home nifedipine and hydral stopped, for now will continue with just metop/losartan and if needs further antihypertensives will prioritize GDMT first
HLD
- LDL above goal (72), will increase crestor to 40 and add ezetimibe
- Goal LDL < 55
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
Physical Exam
Vital Signs/Labs
Vital Signs
Temp Pulse Resp BP Pulse Ox
36.4 C 61 18 127/80 100
10/13/24 07:52 10/13/24 07:52 10/13/24 07:52 10/13/24 03:13 10/13/24 07:52
10/12/24 10/13/24 10/14/24
06:59 06:59 06:59
Actual Weight 97.8 kg 92.6 kg
10/13/24 09:35
10/13/24 09:35
PT 16.4 Sec (11.4-14.6) H 10/06/24 17:40
INR 1.29 10/06/24 17:40
APTT 66.6 Sec (23.4-35.0) H 10/05/24 13:00
Magnesium 1.9 mg/dl (1.6-2.3) 10/08/24 11:50
Triglycerides 114 mg/dl (10-149) 10/07/24 04:19
LDL Cholesterol, Calc 72 mg/dl 10/07/24 04:19
VLDL Cholesterol, Calc 22 mg/dl (0-30) 10/07/24 04:19
HDL Cholesterol 55 mg/dl 10/07/24 04:19
10/03/24
03:01
Wqy-[id number]-Tehlrgnvmcg Pept 9140
Physical Exam
Constitutional: No acute distress
Cardiovascular: Rhythm & rate is regular
Respiratory: Respiratory effort normal
Neuro/Psych: AO x 3
Data Reviewed
-
Date of Service: October 13, 2024
Medical Decision Making: Reviewed Test Results
Labs: Labs Reviewed by me
[2024-10-13 11:03] VITALS: BP 106/56
[2024-10-13] MEDS: ZETIA 10 MG PO (11:05)
[2024-10-13] MEDS: CRESTOR 40 MG PO (11:05)
[2024-10-13] MEDS: ELIQUIS 5 MG PO (11:05)
[2024-10-13] MEDS: COZAAR 100 MG PO (11:05)
[2024-10-13] MEDS: PLAVIX 75 MG PO (11:05)
[2024-10-13] MEDS: LOPRESSOR 50 MG PO (11:05)
[2024-10-13 11:46] VITALS: BP 122/75
[2024-10-13 12:06] VITALS: BP 122/75; PULSE 63
[2024-10-13] MEDS: ROCEPHIN 1000 MG IV (12:06)
[2024-10-13] MEDS: STERILE WATER FOR INJECTION 10 ML IV (12:06)
[2024-10-13 15:04] VITALS: BP 124/77
--- NOTE | 2024-10-13 15:27 | PTCARENOTE ---
Discussed plan for discharge to [facility]. Pt verbalized understanding and anxious to go to assisted living. Will call report: [phone].
--- NOTE | 2024-10-13 16:34 | PTCARENOTE ---
Report given to Kimberly Goodson, . Pt transferred via ambulance stretcher at 1635. Maria catheter intact for transfer. Pt optimistic about transfer. Candace Srivastava and pt's also notified of transfer.
--- NOTE | 2024-10-13 16:47 | CM ---
bed avail at [facility], they are aware that the pt is also looking into assisted living for both him and his - facility is aware she will need memory care. spoke to pts sister in law- irineo Srivastava [phone], updated her. she will be
helping pt and her sister with this transition to assisted living. area on again also aware and has W[facility] number. transfer to [facility] today
[2024-10-14 08:21] LABS: ACT-LR - POC 276 Seconds (116-155)
[2024-10-14 08:21] LABS: ACT-LR - POC 266 Seconds (116-155)
[2024-10-14 08:21] LABS: ACT-LR - POC 136 Seconds (116-155)
[2024-10-14 08:21] LABS: ACT-LR - POC 295 Seconds (116-155)
== END 2024-10-13 16:52 | DRG 321 ==
LOC: IVU 19:13
PROVIDERS: General Practice; Nurse Practitioner; Nurse Practitioner Gerontology; Student in an Organized Health Care Education/Training Program; ADMITTING PHYSICIAN Internal Medicine; ATTENDING PHYSICIAN Hospitalist; CONSULT PHYSICIAN Internal Medicine; CONSULT PHYSICIAN Surgery; EMERGENCY PHYSICIAN Emergency Medicine; PRIMARYCARE PHYSICIAN Family Medicine
PROC: B2111ZZ Fluoroscopy of Multiple Coronary Arteries using Low Osmolar Contrast (ICD-10-PCS; 2024-10-05)
PROC: 4A023N7 Measurement of Cardiac Sampling and Pressure, Left Heart, Percutaneous Approach (ICD-10-PCS; 2024-10-05)
PROC: 027035Z Dilation of Coronary Artery, One Artery with Two Drug-eluting Intraluminal Devices, Percutaneous Approach (ICD-10-PCS; 2024-10-06)
PROC: B240ZZ3 Ultrasonography of Single Coronary Artery, Intravascular (ICD-10-PCS; 2024-10-06)
PROC: 0T7D8ZZ Dilation of Urethra, Via Natural or Artificial Opening Endoscopic (ICD-10-PCS; 2024-10-08)
DX: I21.4 Non-ST elevation (NSTEMI) myocardial infarction (principal); G93.41 Metabolic encephalopathy; I25.42 Coronary artery dissection; I97.51 Accidental puncture and laceration of a circulatory system organ or structure during a circulatory system procedure; N39.0 Urinary tract infection, site not specified; I47.29 Other ventricular tachycardia; I10 Essential (primary) hypertension; I25.10 Atherosclerotic heart disease of native coronary artery without angina pectoris; I73.9 Peripheral vascular disease, unspecified; I48.0 Paroxysmal atrial fibrillation; I49.3 Ventricular premature depolarization; R60.0 Localized edema; E78.00 Pure hypercholesterolemia, unspecified; R33.9 Retention of urine, unspecified; I95.9 Hypotension, unspecified; I25.5 Ischemic cardiomyopathy; Y84.0 Cardiac catheterization as the cause of abnormal reaction of the patient, or of later complication, without mention of misadventure at the time of the procedure; I1A.0 Resistant hypertension; N35.919 Unspecified urethral stricture, male, unspecified site; N32.89 Other specified disorders of bladder; N32.3 Diverticulum of bladder; Z79.82 Long term (current) use of aspirin
CPT/HCPCS: 93308; 80048; 80053; 80061; 81003; 81015; 83036; 83735; 83880; 84484; 85025; 85027; 85347; 85610; 85730; 86850; 86900; 86901; 86920; 87077; 87086; 87186; 92978; 93005; 93306; 93321; 93325; 93971; 96365; 96366; 96367; 97116; 97163; 97167; 97530; 97535; 99152; 99153; 99291; C1725; C1753; C1874; C1887; C1894; C9600; Q9950; Q9967